=== PATIENT | female | born 1970 | race Caucasian/White ===

== ENCOUNTER 2017-06-09 19:50 | Emergency (ER) | payer BC ==
[~2017-06-09] VITALS: Ht 170.2 cm; Wt 90.3 kg
[~2017-06-09 19:50] MED LIST: ABILIFY5 MG PO; ALTEPLASE IV; AMITRIPTYLINE H25 MG PO; ATARAX 25MG25 MG PO; ATIVAN1 MG; BENTYL10 MG PO; BUMETANIDE1 MG PO; BUSPIRONE HCL5 MG PO; CLONAZEPAM0.5 MG PO; CYCLOBENZAPRINE10 MG PO; CYMBALTA20 MG PO; EFFEXOR XR150 MG PO; LEXAPRO20 MG PO; LIOTHYRONINE SO5 MCG PO; LOPERAMIDE2 MG PO; OXYCODONE-ACET1 EAC1 PO; PANTOPRAZOLE SO40 MG PO; POTASSIUM CHLO20 ME1 PO; PREDNISONE5 MG PO; PROSOURCE275 GM PO; RESTORIL30 MG PO; SEROQUEL25 MG PO; SYNTHROID50 MCG PO; TEMAZEPAM15 MG PO; VANCOMYCIN HCL1 GM IV; XANAX1 MG PO; Z VYVANSE PO; Z.0.DICYCLOMINE HCL2 PO; Z.0.TRAZODONE HCL100 PO; ZOFRAN ODT4 MG IV; [UNRECOGNIZED DRUG - OTHER] PO; [UNRECOGNIZED DRUG - OTHER] PO; rexulti; trintellix
[2017-06-09] MEDS ORDERED: DIATRIZOATE MEGLUMINE 300 MG/1 ML BTL UR ONE (21:34)
[2017-06-09] MEDS ORDERED: DIATRIZOATE MEGL/DIATRIZOA SOD 30 ML BTL PO ONE (21:37)
[2017-06-09 22:33] LABS: BILIRUBIN,URINE NEGATIVE (NEGATIVE); KETONES,URINE NEGATIVE (NEGATIVE); LEUKOCYTE ESTERASE ,URINE NEGATIVE (NEGATIVE); NITRITE,URINE NEGATIVE (NEGATIVE); PROTEIN,URINE DIPSTICK NEGATIVE (NEGATIVE); URINE UROBILINOGEN 0.2 mg/dL (0.2 - 1)
[2017-06-09 22:34] LABS: CLARITY,URINE CLEAR (CLEAR); COLOR,URINE YELLOW (YELLOW)
[2017-06-09 22:58] LABS: EPITHELIAL CELLS,URINE FEW /LPF; RBC,URINE 0-5 /HPF (0-5); WBC,URINE (MAN) 0-5 /HPF (0-5)
--- NOTE | 2017-06-09 23:29 | Diagnostic Imaging Report ---
EXAM: CT Abdomen and Pelvis WITHOUT contrast INDICATION: Abdominal pain, left-sided, history of colonic surgery COMPARISON: 11/25/2011 TECHNIQUE: Abdomen and pelvis were scanned utilizing a multidetector helical scanner from the lung base to the pubic symphysis without administration of IV contrast. Absence of intravenous contrast decreases sensitivity for detection of focal lesions and vascular pathology. Coronal and sagittal reformations were obtained. Routine protocol was performed. IV CONTRAST: None. ORAL CONTRAST: Water RADIATION DOSE: Total DLP: 717.17 mGy*cm Estimated effective dose: (DLP x 0.015 x size factor) mSv COMPLICATIONS: None FINDINGS: LINES and TUBES: None. LOWER THORAX: Unremarkable HEPATOBILIARY: No focal hepatic lesions. No biliary ductal dilation. GALLBLADDER: Not visualized SPLEEN: No splenomegaly. PANCREAS: No focal masses or ductal dilatation. ADRENALS: No adrenal nodules KIDNEYS/URETERS: No hydronephrosis. No cystic or solid mass lesions. No stones. GI TRACT: No abnormal distention, wall thickening, or evidence of bowel obstruction. There is subtotal resection of the colon. The great majority of small bowel and stomach are well opacified. Postsurgical changes in the upper abdomen compatible with prior bariatric surgery. PELVIC ORGANS/BLADDER: There are postop changes of hysterectomy and bilateral oophorectomies. LYMPH NODES: No lymphadenopathy. VESSELS: Unremarkable. PERITONEUM / RETROPERITONEUM: No free air or fluid. BONES: Unremarkable. SOFT TISSUES: Anterior abdominal wall repair with mesh IMPRESSION: 1. No evidence of obstruction. 2. Postsurgical changes related to bariatric surgery and subtotal colectomy. 3. No acute intra-abdominal or pelvic abnormality noted Signed by: Dr. Best Carmona M.D. on 06/09/2017 11:26 PM
[2017-06-09 23:39] LABS: BASOPHILS % 0.8 % (0.0-1.0); EOSINOPHILS # (AUTO) 0.1 (0.0-0.4); EOSINOPHILS % 1.5 % (0.0-6.0); HEMATOCRIT 35.7 % (34.2-44.1); HEMOGLOBIN 11.5 g/dL (12.0-16.0); LYMPHOCYTES # (AUTO) 1.9 (1.0-3.2); LYMPHOCYTES % 34.8 % (18.0-39.1); MEAN CORPUSCULAR HEMOGLOBIN 27.5 pg (28-32); MEAN CORPUSCULAR HGB CONC 32.2 g/dL (31-35); MEAN CORPUSCULAR VOLUME 85.4 fL (81-99); MONOCYTES # (AUTO) 0.4 (0.2-0.8); MONOCYTES % 7.2 % (4.4-11.3); NEUTROPHILS # (AUTO) 2.9 (2.1-6.9); NEUTROPHILS % 55.3 % (38.7-80.0); PLATELET COUNT 293 x10e3/uL (140-360); RED BLOOD COUNT 4.18 x10e6/uL (3.6-5.1); RED CELL DISTRIBUTION WIDTH 14.2 % (11.7-14.4)
[2017-06-09 23:56] LABS: ALANINE AMINOTRANSFERASE 12 IU/L (0-55); ALBUMIN 3.4 g/dL (3.5-5.0); ALKALINE PHOSPHATASE 124 IU/L (40-150); AMYLASE 33 U/L (25-125); ANION GAP 13.8 mmol/L (8-16); BLOOD UREA NITROGEN 10 mg/dL (7-26); BUN/CREATININE RATIO 13 (6-25); CALCIUM 9.5 mg/dL (8.4-10.2); CARBON DIOXIDE 25 mmol/L (22-29); CHLORIDE 103 mmol/L (98-107); EST GLOMERULAR FILTRATION RATE > 60 ML/MIN (60-); GLUCOSE 93 mg/dL (74-118); LIPASE 31 U/L (8-78); POTASSIUM 3.8 mmol/L (3.5-5.1); SODIUM 138 mmol/L (136-145)
== END 2017-06-10 01:08 | disposition home or self-care (01) ==
LOC: ER 19:50
DX: R10.33 Periumbilical pain (principal); I10 Essential (primary) hypertension; G40.909 Epilepsy, unspecified, not intractable, without status epilepticus; Z85.3 Personal history of malignant neoplasm of breast
CPT/HCPCS: 36415; 74176; 80053; 81001; 82150; 83690; 85025; 87086; 99284

== ENCOUNTER 2018-02-18 08:49 | Emergency (ER) | payer BC ==
[~2018-02-18] VITALS: Ht 170.2 cm; Wt 90.3 kg
[2018-02-18] MEDS ORDERED: ASPIRIN 81 MG CHEW TAB PO STA (09:14)
[2018-02-18] MEDS ORDERED: SODIUM CHLORIDE 0.9% 100 ML IV STA (09:14)
[2018-02-18] MEDS ORDERED: ASPIRIN 81 MG CHEW TAB PO ONE (09:15)
[2018-02-18] MEDS ORDERED: SODIUM CHLORIDE 0.9% 1000ML 1,000 ML IV SCH (10:30)
[2018-02-18 10:44] LABS: BASOPHILS # (AUTO) 0.1 (0.0-0.1); BASOPHILS % 0.9 % (0.0-1.0); EOSINOPHILS # (AUTO) 0.1 (0.0-0.4); HEMATOCRIT 31.9 % (34.2-44.1); HEMOGLOBIN 9.6 g/dL (12.0-16.0); LYMPHOCYTES # (AUTO) 1.8 (1.0-3.2); LYMPHOCYTES % 31.7 % (18.0-39.1); MEAN CORPUSCULAR HEMOGLOBIN 24.9 pg (28-32); MEAN CORPUSCULAR HGB CONC 30.1 g/dL (31-35); MEAN CORPUSCULAR VOLUME 82.6 fL (81-99); MONOCYTES # (AUTO) 0.3 (0.2-0.8); MONOCYTES % 5.7 % (4.4-11.3); NEUTROPHILS # (AUTO) 3.4 (2.1-6.9); NEUTROPHILS % 59.3 % (38.7-80.0); PLATELET COUNT 343 x10e3/uL (140-360); RED BLOOD COUNT 3.86 x10e6/uL (3.6-5.1)
[2018-02-18 10:59] LABS: AMPHETAMINES SCREEN,URINE POSITIVE (NEGATIVE); PHENCYCLIDINE SCREEN,URINE NEGATIVE (NEGATIVE)
[2018-02-18 11:00] LABS: BENZODIAZEPINES SCREEN,URINE NEGATIVE (NEGATIVE)
[2018-02-18] MEDS ORDERED: ONDANSETRON HCL 4 MG ORAL DISINTEGRATING TAB PO ONE (11:00)
[2018-02-18 11:03] LABS: ALANINE AMINOTRANSFERASE 15 IU/L (0-55); ALBUMIN 3.5 g/dL (3.5-5.0); ALBUMIN/GLOBULIN RATIO 0.9 (0.8-2.0); ALKALINE PHOSPHATASE 146 IU/L (40-150); AMYLASE 53 U/L (25-125); ANION GAP 16.4 mmol/L (8-16); BLOOD UREA NITROGEN 6 mg/dL (7-26); BUN/CREATININE RATIO 6 (6-25); CALCIUM 9.2 mg/dL (8.4-10.2); CARBON DIOXIDE 22 mmol/L (22-29); CHLORIDE 109 mmol/L (98-107); CREATINE KINASE 68 IU/L (29-168); CREATININE, SERUM 1.01 mg/dL (0.57-1.11); EST GLOMERULAR FILTRATION RATE 59 ML/MIN (60-); GLUCOSE 93 mg/dL (74-118); LIPASE 35 U/L (8-78); POTASSIUM 4.4 mmol/L (3.5-5.1); SODIUM 143 mmol/L (136-145)
[2018-02-18] MEDS ORDERED: ACETAMIN/BUTALBITAL/CAFFEINE TAB PO ONE (11:45)
--- NOTE | 2018-02-18 12:19 | Diagnostic Imaging Report ---
PROCEDURE: A single AP view of the chest. COMPARISON: Chest radiograph 03/12/17. INDICATIONS: CHEST TIGHTNESS FINDINGS: Lines/tubes: Right chest port with tip near the cavoatrial junction. The apex of the catheter is acutely angled at the neck. Interval removal of left sided PICC. Surgical clips project over the left hemithorax. Lungs: The lungs are well inflated and clear. There is no evidence of pneumonia or pulmonary edema. Pleura: There is no pleural effusion or pneumothorax. Heart and mediastinum: The cardiomediastinal silhouette is unchanged. Bones: No acute bony abnormality. IMPRESSION: Clear lungs. No evidence of pneumothorax. Right sided chest port with catheter apex with an acute angle at the neck, which could be positional or represent a kink. Dictated by: RICKEY RHODES M.D. on 02/18/2018 at 9:56 Electronically approved by: RICKEY RHODES M.D. on 02/18/2018 at 9:56
[2018-02-18 13:50] VITALS: BP 134/79
== END 2018-02-18 14:08 | disposition home or self-care (01) ==
LOC: ER 08:49
DX: R07.89 Other chest pain (principal); R11.0 Nausea
CPT/HCPCS: 36415; 71045; 80053; 80307; 82150; 82550; 82553; 83690; 83880; 84484; 85025; 93005; 99284; J1642

== ENCOUNTER 2021-10-12 13:36 | Inpatient (IN) | payer MEDICARE ==
[~2021-10-12] VITALS: Ht 170.2 cm; Wt 100.2 kg
[2021-10-12] MEDS ORDERED: LORAZEPAM 0.5 MG TAB PO ONE (13:45)
[2021-10-12] MEDS ORDERED: ONDANSETRON HCL INJ 2MG/ML 2ML 2 MG/ML VIAL IV STA (14:54)
[2021-10-12 14:55] LABS: BASOPHILS # (AUTO) 0.1 (0.0-0.1); BASOPHILS % 0.7 % (0.0-1.0); EOSINOPHILS # (AUTO) 0.1 (0.0-0.4); EOSINOPHILS % 1.2 % (0.0-6.0); HEMATOCRIT 39.2 % (34.2-44.1); HEMOGLOBIN 12.2 g/dL (12.0-16.0); LYMPHOCYTES # (AUTO) 2.6 (1.0-3.2); LYMPHOCYTES % 38.4 % (18.0-39.1); MEAN CORPUSCULAR HEMOGLOBIN 28.6 pg (28-32); MEAN CORPUSCULAR HGB CONC 31.1 g/dL (31-35); MONOCYTES # (AUTO) 0.5 (0.2-0.8); MONOCYTES % 7.4 % (4.4-11.3); NEUTROPHILS # (AUTO) 3.6 (2.1-6.9); NEUTROPHILS % 51.9 % (38.7-80.0); PLATELET COUNT 244 x10e3/uL (140-360); RED BLOOD COUNT 4.26 x10e6/uL (3.6-5.1); RED CELL DISTRIBUTION WIDTH 13.5 % (11.7-14.4)
[2021-10-12] MEDS ORDERED: SODIUM CHLORIDE 0.9% 1000ML 1,000 ML IV SCH (15:00)
[2021-10-12] MEDS ORDERED: SODIUM CHLORIDE 0.9% 1000ML 1,000 ML ONE (15:02)
[2021-10-12 15:16] LABS: ALBUMIN 3.4 g/dL (3.5-5.0); ALBUMIN/GLOBULIN RATIO 0.9 (0.8-2.0); ANION GAP 13.7 mmol/L (8-16); CREATININE, SERUM 0.93 mg/dL (0.57-1.11); POTASSIUM 3.7 mmol/L (3.5-5.1)
[2021-10-12] MEDS ORDERED: SODIUM CHLORIDE 0.9% 1000ML 500 ML IV ONE (16:15)
[2021-10-12] MEDS ORDERED: DEXTROSE 50% SYRINGE 50 ML IV ONE ×2 (16:15→16:19)
[2021-10-12] MEDS ORDERED: SODIUM CHLORIDE 0.9% 500ML 500 ML ONE (16:20)
[2021-10-12 16:26] LABS: CLARITY,URINE SL CLOUDY (CLEAR); COLOR,URINE STRAW (YELLOW); KETONES,URINE TRACE (NEGATIVE); LEUKOCYTE ESTERASE ,URINE MODERATE (NEGATIVE); NITRITE,URINE NEGATIVE (NEGATIVE); PROTEIN,URINE DIPSTICK TRACE (NEGATIVE); URINE UROBILINOGEN 0.2 mg/dL (0.2 - 1)
[2021-10-12 16:34] LABS: BACTERIA,URINE MODERATE /HPF; EPITHELIAL CELLS,URINE FEW /LPF; RBC,URINE 0-5 /HPF (0-5)
[2021-10-12] MEDS ORDERED: ONDANSETRON HCL INJ 2MG/ML 2ML 2 MG/ML VIAL IV PRN (16:45)
[2021-10-12] MEDS: CEPHALEXIN 500 MG CAP PO SCH ×2 (17:35→23:38)
[2021-10-12] MEDS: CLONAZEPAM 0.5 MG TAB PO PRN (17:35)
[2021-10-12] MEDS: SODIUM CHLORIDE 0.9% 1000ML 1,000 ML IV SCH (18:08)
[2021-10-12 20:00] VITALS: BP 115/73
[2021-10-12 20:07] VITALS: BP 115/73
[2021-10-12] MEDS ORDERED: TRAZODONE HCL300 MG PO (22:22)
[2021-10-12] MEDS ORDERED: GEODON80 MG PO (22:23)
[2021-10-12] MEDS ORDERED: GABAPENTIN400 MG PO (22:25)
[2021-10-12] MEDS ORDERED: WARFARIN SODIUM5 MG PO (22:28)
[2021-10-12] MEDS: DULOXETINE HCL 30 MG DELAYED RELEASE PO SCH (23:16)
[2021-10-12] MEDS: ZIPRASIDONE 20 MG CAP PO SCH (23:17)
[2021-10-12] MEDS: TRAZODONE HCL 50 MG TAB PO SCH (23:17)
[2021-10-12] MEDS: GABAPENTIN 300 MG CAP PO SCH (23:17)
[2021-10-12] MEDS: CLONAZEPAM 1 MG TAB PO PRN (23:38)
[2021-10-13] VITALS (7 sets, daily range): BP systolic 118–140; BP diastolic 71–79
[2021-10-13] MEDS: SODIUM CHLORIDE 0.9% 1000ML 1,000 ML IV SCH (05:04)
[2021-10-13] MEDS: CEPHALEXIN 500 MG CAP PO SCH (05:11)
[2021-10-13 05:30] LABS: BASOPHILS % 0.7 % (0.0-1.0); EOSINOPHILS # (AUTO) 0.1 (0.0-0.4); HEMATOCRIT 36.2 % (34.2-44.1); LYMPHOCYTES # (AUTO) 1.3 (1.0-3.2); LYMPHOCYTES % 29.7 % (18.0-39.1); MEAN CORPUSCULAR HEMOGLOBIN 28.5 pg (28-32); MEAN CORPUSCULAR HGB CONC 30.4 g/dL (31-35); MEAN CORPUSCULAR VOLUME 93.8 fL (81-99); MONOCYTES # (AUTO) 0.3 (0.2-0.8); MONOCYTES % 7.1 % (4.4-11.3); NEUTROPHILS # (AUTO) 2.7 (2.1-6.9); NEUTROPHILS % 60.3 % (38.7-80.0); PLATELET COUNT 213 x10e3/uL (140-360); RED BLOOD COUNT 3.86 x10e6/uL (3.6-5.1); RED CELL DISTRIBUTION WIDTH 13.2 % (11.7-14.4)
[2021-10-13 06:12] LABS: ANION GAP 9.8 mmol/L (8-16); CALCIUM 8.1 mg/dL (8.4-10.2); CREATININE, SERUM 0.75 mg/dL (0.57-1.11); POTASSIUM 3.8 mmol/L (3.5-5.1)
[2021-10-13] MEDS ORDERED: ONDANSETRON HCL 4 MG ORAL DISINTEGRATING TAB PO SCH (07:45)
[2021-10-13] MEDS ORDERED: DEXTROSE 5%/0.45% SOD CHL 1,000 ML IV SCH (07:45)
[2021-10-13] MEDS: LEVOTHYROXINE SODIUM 50 MCG TAB PO SCH (09:00)
[2021-10-13] MEDS ORDERED: DULOXETINE HCL 30 MG DELAYED RELEASE PO SCH (09:00)
[2021-10-13] MEDS: DULOXETINE HCL 30 MG DELAYED RELEASE PO SCH ×2 (09:31→16:19)
[2021-10-13] MEDS: PREDNISONE 10 MG TAB PO SCH (09:31)
[2021-10-13] MEDS: TRIMETHOPRIM/SULFAMETHOXAZOLE 160-800 MG TAB PO SCH ×2 (09:31→22:04)
[2021-10-13 09:48] LABS: INR 1.38; PROTHROMBIN TIME 18.1 seconds (11.9-14.5)
[2021-10-13] MEDS ORDERED: ONDANSETRON HCL 4 MG ORAL DISINTEGRATING TAB PO PRN (10:15)
[2021-10-13] MEDS: CLONAZEPAM 0.5 MG TAB PO PRN (12:40)
[2021-10-13] MEDS: WARFARIN SOD 5 MG TAB PO SCH (16:18)
[2021-10-13] MEDS: CLONAZEPAM 1 MG TAB PO PRN (20:04)
[2021-10-13] MEDS ORDERED: ZIPRASIDONE 20 MG CAP PO SCH (21:00)
[2021-10-13] MEDS ORDERED: GABAPENTIN 300 MG CAP PO SCH (21:00)
[2021-10-13] MEDS ORDERED: TRAZODONE HCL 50 MG TAB PO SCH (21:00)
[2021-10-13] MEDS: GABAPENTIN 300 MG CAP PO SCH (22:04)
[2021-10-13] MEDS: ZIPRASIDONE 20 MG CAP PO SCH (22:04)
[2021-10-13] MEDS: TRAZODONE HCL 50 MG TAB PO SCH (22:04)
[2021-10-14] VITALS: BP 117/58
[2021-10-14] MEDS: LEVOTHYROXINE SODIUM 50 MCG TAB PO SCH (05:44)
[2021-10-14 05:47] VITALS: BP 126/76
[2021-10-14 07:57] VITALS: BP 121/72
[2021-10-14 08:03] VITALS: BP 121/72
[2021-10-14] MEDS: TRIMETHOPRIM/SULFAMETHOXAZOLE 160-800 MG TAB PO SCH ×2 (08:38→22:30)
[2021-10-14] MEDS: PREDNISONE 10 MG TAB PO SCH (08:38)
[2021-10-14] MEDS: DULOXETINE HCL 30 MG DELAYED RELEASE PO SCH ×2 (08:38→17:11)
[2021-10-14] MEDS ORDERED: BACTRIM DS TAB1 EACH PO (10:07)
[2021-10-14] MEDS: CLONAZEPAM 0.5 MG TAB PO PRN (14:00)
[2021-10-14 15:26] VITALS: BP 136/76
[2021-10-14] MEDS: WARFARIN SOD 5 MG TAB PO SCH (17:11)
[2021-10-14 18:16] LABS: FREE T4 (FREE THYROXINE) 0.95 ng/dL (0.8-1.8); THYROID STIMULATING HORMONE 2.148 uIU/mL (0.350-4.940)
[2021-10-14 20:00] VITALS: BP 139/82
[2021-10-14] MEDS: GABAPENTIN 300 MG CAP PO SCH (22:30)
[2021-10-14] MEDS: ZIPRASIDONE 20 MG CAP PO SCH (22:30)
[2021-10-14] MEDS: TRAZODONE HCL 50 MG TAB PO SCH (22:30)
[2021-10-14] MEDS: CLONAZEPAM 1 MG TAB PO PRN (22:30)
[2021-10-15 01:23] VITALS: BP 135/88
[2021-10-15 04:00] VITALS: BP 104/68
[2021-10-15] MEDS: LEVOTHYROXINE SODIUM 50 MCG TAB PO SCH (05:25)
[2021-10-15 07:58] VITALS: BP 111/65
[2021-10-15 08:00] VITALS: BP 111/65
[2021-10-15] MEDS: DULOXETINE HCL 30 MG DELAYED RELEASE PO SCH (08:33)
[2021-10-15] MEDS: PREDNISONE 10 MG TAB PO SCH (08:33)
[2021-10-15] MEDS: TRIMETHOPRIM/SULFAMETHOXAZOLE 160-800 MG TAB PO SCH (08:33)
[2021-10-15 09:08] LABS: BASOPHILS % 0.6 % (0.0-1.0); EOSINOPHILS # (AUTO) 0.1 (0.0-0.4); EOSINOPHILS % 1.8 % (0.0-6.0); HEMATOCRIT 34.8 % (34.2-44.1); HEMOGLOBIN 10.8 g/dL (12.0-16.0); LYMPHOCYTES # (AUTO) 1.7 (1.0-3.2); LYMPHOCYTES % 33.5 % (18.0-39.1); MEAN CORPUSCULAR HEMOGLOBIN 28.6 pg (28-32); MEAN CORPUSCULAR VOLUME 92.1 fL (81-99); MONOCYTES # (AUTO) 0.3 (0.2-0.8); MONOCYTES % 6.1 % (4.4-11.3); NEUTROPHILS % 57.6 % (38.7-80.0); PLATELET COUNT 214 x10e3/uL (140-360); RED BLOOD COUNT 3.78 x10e6/uL (3.6-5.1); RED CELL DISTRIBUTION WIDTH 13.3 % (11.7-14.4)
[2021-10-15 09:26] LABS: ALBUMIN 2.8 g/dL (3.5-5.0); ALBUMIN/GLOBULIN RATIO 0.9 (0.8-2.0); ANION GAP 14.5 mmol/L (8-16); CREATININE, SERUM 0.91 mg/dL (0.57-1.11); MAGNESIUM 1.7 MG/DL (1.3-2.1); POTASSIUM 3.5 mmol/L (3.5-5.1)
[2021-10-15] MEDS ORDERED: SYNTHROID50 MCG PO (09:32)
[2021-10-15] MEDS ORDERED: PREDNISONE5 MG PO (09:32)
[2021-10-15] MEDS ORDERED: HEPARIN 500 UNITS/5ML MDV INJ ONE (09:45)
== END 2021-10-15 10:25 | disposition home or self-care (01) | DRG 392 ==
LOC: ER 13:43 → ERHOLD 16:45 → MED/SURG 18:17 → OBSVTOIN 10-15 07:21
PROVIDERS: ADMIT Internal Medicine; ATTEND Internal Medicine
DX: K91.1 Postgastric surgery syndromes (principal); N39.0 Urinary tract infection, site not specified; E27.1 Primary adrenocortical insufficiency; K95.89 Other complications of other bariatric procedure; E03.9 Hypothyroidism, unspecified; F41.9 Anxiety disorder, unspecified; E16.2 Hypoglycemia, unspecified; Z91.040 Latex allergy status; Z88.0 Allergy status to penicillin; Z88.2 Allergy status to sulfonamides; Z88.8 Allergy status to other drugs, medicaments and biological substances; Z91.048 Other nonmedicinal substance allergy status; F32.A Depression, unspecified; Z85.3 Personal history of malignant neoplasm of breast; Z90.13 Acquired absence of bilateral breasts and nipples; Z90.49 Acquired absence of other specified parts of digestive tract; Z86.711 Personal history of pulmonary embolism; Z79.01 Long term (current) use of anticoagulants; Z93.3 Colostomy status
CPT/HCPCS: 36415; 80048; 80053; 81001; 82024; 83036; 83525; 83735; 84206; 84439; 84443; 84681; 85025; 85610; 87086; 99284; G0378; J2405; J7030; J7040; J7512; J7799; Q0162; U0002

== ENCOUNTER 2021-11-14 16:51 | Observation (INO) | payer MEDICARE ==
[~2021-11-14] VITALS: Ht 170.2 cm; Wt 100.7 kg
[~2021-11-14 16:51] MED LIST changes: +BACTRIM DS TAB1 EACH PO; +GABAPENTIN400 MG PO; +GEODON80 MG PO; +TRAZODONE HCL300 MG PO; +WARFARIN SODIUM5 MG PO; -ZOFRAN ODT4 MG IV; +ZOFRAN ODT4 MG PO
[2021-11-14] MEDS ORDERED: SODIUM CHLORIDE 0.9% 1000ML 1,000 ML IV STA (17:50)
[2021-11-14] MEDS ORDERED: MECLIZINE HCL 12.5 MG TAB PO STA (17:50)
[2021-11-14 18:12] LABS: BASOPHILS % 0.7 % (0.0-1.0); EOSINOPHILS # (AUTO) 0.1 (0.0-0.4); EOSINOPHILS % 1.1 % (0.0-6.0); HEMOGLOBIN 10.9 g/dL (12.0-16.0); LYMPHOCYTES # (AUTO) 1.6 (1.0-3.2); LYMPHOCYTES % 28.3 % (18.0-39.1); MEAN CORPUSCULAR HEMOGLOBIN 29.2 pg (28-32); MEAN CORPUSCULAR HGB CONC 31.1 g/dL (31-35); MEAN CORPUSCULAR VOLUME 93.8 fL (81-99); MONOCYTES # (AUTO) 0.3 (0.2-0.8); MONOCYTES % 5.2 % (4.4-11.3); NEUTROPHILS # (AUTO) 3.6 (2.1-6.9); NEUTROPHILS % 64.5 % (38.7-80.0); PLATELET COUNT 223 x10e3/uL (140-360); RED BLOOD COUNT 3.73 x10e6/uL (3.6-5.1); RED CELL DISTRIBUTION WIDTH 14.1 % (11.7-14.4)
[2021-11-14 18:34] LABS: ALBUMIN 3.2 g/dL (3.5-5.0); ALBUMIN/GLOBULIN RATIO 0.8 (0.8-2.0); ANION GAP 15.6 mmol/L (8-16); CALCIUM 8.2 mg/dL (8.4-10.2); CREATININE, SERUM 0.78 mg/dL (0.57-1.11); POTASSIUM 4.6 mmol/L (3.5-5.1)
[2021-11-14] MEDS ORDERED: IOPAMIDOL 370 MG/ML 100 ML INFUS..BTL INJ ONE (18:58)
[2021-11-14 19:53] LABS: CLARITY,URINE CLOUDY (CLEAR); COLOR,URINE YELLOW (YELLOW); KETONES,URINE NEGATIVE (NEGATIVE); LEUKOCYTE ESTERASE ,URINE 1+ (NEGATIVE); NITRITE,URINE NEGATIVE (NEGATIVE); PROTEIN,URINE DIPSTICK NEGATIVE (NEGATIVE)
[2021-11-14 19:54] LABS: URINE UROBILINOGEN 4 mg/dL (0.2 - 1)
[2021-11-14 19:55] LABS: AMPHETAMINES SCREEN,URINE NEGATIVE (NEGATIVE); BENZODIAZEPINES SCREEN,URINE NEGATIVE (NEGATIVE); PHENCYCLIDINE SCREEN,URINE NEGATIVE (NEGATIVE)
[2021-11-14 20:04] LABS: BACTERIA,URINE MODERATE /HPF; EPITHELIAL CELLS,URINE MANY /LPF; TRANSITIONAL EPI CELLS,URINE FEW
[2021-11-15] MEDS ORDERED: AMITRIPTYLINE100 MG PO (03:12)
[2021-11-15] MEDS: SODIUM CHLORIDE 0.9% 1000ML 1,000 ML IV SCH ×2 (03:46→04:07)
[2021-11-15 03:48] VITALS: BP 123/74
[2021-11-15 03:56] VITALS: BP 123/74
[2021-11-15 04:01] VITALS: BP 123/74
[2021-11-15] MEDS ORDERED: ACETAMINOPHEN 325 MG TAB PO PRN (07:15)
[2021-11-15 07:59] LABS: BASOPHILS % 0.9 % (0.0-1.0); EOSINOPHILS % 1.2 % (0.0-6.0); HEMATOCRIT 33.8 % (34.2-44.1); HEMOGLOBIN 10.3 g/dL (12.0-16.0); LYMPHOCYTES # (AUTO) 0.9 (1.0-3.2); LYMPHOCYTES % 29.2 % (18.0-39.1); MEAN CORPUSCULAR HEMOGLOBIN 28.7 pg (28-32); MEAN CORPUSCULAR HGB CONC 30.5 g/dL (31-35); MEAN CORPUSCULAR VOLUME 94.2 fL (81-99); MONOCYTES # (AUTO) 0.2 (0.2-0.8); MONOCYTES % 6.8 % (4.4-11.3); NEUTROPHILS % 61.6 % (38.7-80.0); RED BLOOD COUNT 3.59 x10e6/uL (3.6-5.1); RED CELL DISTRIBUTION WIDTH 13.9 % (11.7-14.4)
[2021-11-15 08:08] LABS: PLATELET COUNT 168 x10e3/uL (140-360)
[2021-11-15 08:13] VITALS: BP 132/87
[2021-11-15] MEDS ORDERED: ONDANSETRON HCL 4 MG ORAL DISINTEGRATING TAB PO PRN (08:15)
[2021-11-15] MEDS ORDERED: CLONAZEPAM 1 MG TAB PO PRN (08:15)
[2021-11-15] MEDS ORDERED: MECLIZINE HCL 12.5 MG TAB PO PRN ×2 (08:15→08:45)
[2021-11-15] MEDS ORDERED: LEVOTHYROXINE SODIUM 50 MCG TAB PO SCH (08:30)
[2021-11-15 08:32] LABS: ALBUMIN 2.8 g/dL (3.5-5.0); ALBUMIN/GLOBULIN RATIO 0.9 (0.8-2.0); CALCIUM 7.8 mg/dL (8.4-10.2); CREATININE, SERUM 0.71 mg/dL (0.57-1.11)
[2021-11-15 08:54] LABS: CREATINE KINASE MB 0.6 ng/mL (0-5.0)
[2021-11-15] MEDS ORDERED: DULOXETINE HCL 30 MG DELAYED RELEASE PO SCH (09:00)
[2021-11-15] MEDS ORDERED: PREDNISONE 10 MG TAB PO SCH (09:00)
[2021-11-15 10:05] LABS: INR 1.02; PROTHROMBIN TIME 14.3 seconds (11.9-14.5)
[2021-11-15 10:06] VITALS: BP 132/87
[2021-11-15 11:04] VITALS: BP 144/74
[2021-11-15] MEDS ORDERED: MECLIZINE HCL12.5 MG PO (14:47)
[2021-11-15] MEDS ORDERED: WARFARIN SOD 5 MG TAB PO SCH (17:00)
[2021-11-15] MEDS ORDERED: GABAPENTIN 300 MG CAP PO SCH (21:00)
[2021-11-15] MEDS ORDERED: ZIPRASIDONE 20 MG CAP PO SCH (21:00)
[2021-11-15] MEDS ORDERED: TRAZODONE HCL 50 MG TAB PO SCH (21:00)
== END 2021-11-15 14:45 | disposition home or self-care (01) ==
LOC: ER 17:46 → ERHOLD 20:16 → MED/SURG 11-15 02:17
PROVIDERS: ADMIT Internal Medicine; ATTEND Internal Medicine
DX: R42 Dizziness and giddiness (principal); R55 Syncope and collapse; F12.90 Cannabis use, unspecified, uncomplicated; D64.9 Anemia, unspecified; E03.9 Hypothyroidism, unspecified; F41.9 Anxiety disorder, unspecified; F32.A Depression, unspecified; E66.9 Obesity, unspecified; E27.1 Primary adrenocortical insufficiency; Z85.3 Personal history of malignant neoplasm of breast; Z98.84 Bariatric surgery status; Z91.040 Latex allergy status; Z88.0 Allergy status to penicillin; Z88.8 Allergy status to other drugs, medicaments and biological substances; Z91.048 Other nonmedicinal substance allergy status; Z20.822 Contact with and (suspected) exposure to COVID-19; Z86.711 Personal history of pulmonary embolism; Z68.34 Body mass index [BMI] 34.0-34.9, adult; Z91.14 Patient's other noncompliance with medication regimen
CPT/HCPCS: 36415 ×2; 70450; 70496; 70498; 71045; 80053 ×2; 80307; 80320; 81001; 82550; 82553; 84484 ×2; 85025 ×2; 85610; 93005; 93306; 99284; G0378 ×2; J7030 ×2; J7512; J8597 ×2; Q0162; Q9967; U0002

== ENCOUNTER 2022-03-29 19:24 | Inpatient (IN) | payer MEDICARE ==
[~2022-03-29] VITALS: Ht 170.2 cm; Wt 99.8 kg
[~2022-03-29 19:24] MED LIST changes: +AMITRIPTYLINE100 MG PO; +MECLIZINE HCL12.5 MG PO
[2022-03-29] MEDS ORDERED: ONDANSETRON HCL INJ 2MG/ML 2ML 2 MG/ML VIAL IV STA (19:38)
[2022-03-29] MEDS ORDERED: SODIUM CHLORIDE 0.9% 1000ML 1,000 ML IV ONE (19:45)
[2022-03-29] MEDS ORDERED: Morphine 4mg INJECTION 4 MG/ML INJ IV ONE ×2 (19:45→22:15)
[2022-03-29 20:17] LABS: BASOPHILS % 0.6 % (0.0-1.0); EOSINOPHILS # (AUTO) 0.1 (0.0-0.4); HEMATOCRIT 35.3 % (34.2-44.1); HEMOGLOBIN 10.9 g/dL (12.0-16.0); LYMPHOCYTES # (AUTO) 1.6 (1.0-3.2); LYMPHOCYTES % 32.9 % (18.0-39.1); MEAN CORPUSCULAR HEMOGLOBIN 28.6 pg (28-32); MEAN CORPUSCULAR HGB CONC 30.9 g/dL (31-35); MEAN CORPUSCULAR VOLUME 92.7 fL (81-99); MONOCYTES # (AUTO) 0.3 (0.2-0.8); MONOCYTES % 6.3 % (4.4-11.3); NEUTROPHILS # (AUTO) 2.8 (2.1-6.9); PLATELET COUNT 252 x10e3/uL (140-360); RED BLOOD COUNT 3.81 x10e6/uL (3.6-5.1); RED CELL DISTRIBUTION WIDTH 12.7 % (11.7-14.4)
[2022-03-29 20:29] LABS: INR 0.95; PARTIAL THROMBOPLASTIN TIME 27.7 seconds (23.8-35.5); PROTHROMBIN TIME 13.5 seconds (11.9-14.5)
[2022-03-29 20:36] LABS: ALBUMIN 3.4 g/dL (3.5-5.0); ANION GAP 15.8 mmol/L (8-16); CALCIUM 8.8 mg/dL (8.4-10.2); CREATININE, SERUM 0.82 mg/dL (0.57-1.11); POTASSIUM 3.8 mmol/L (3.5-5.1)
[2022-03-29 20:43] LABS: CREATINE KINASE MB 0.7 ng/mL (0-5.0)
[2022-03-29] MEDS ORDERED: ONDANSETRON HCL INJ 2MG/ML 2ML 2 MG/ML VIAL IV PRN (22:45)
[2022-03-29] MEDS: SODIUM CHLORIDE 0.9% 1000ML 1,000 ML IV SCH (23:26)
[2022-03-30] VITALS (10 sets, daily range): BP systolic 92–165; BP diastolic 53–90
[2022-03-30] MEDS: KETOROLAC TROMETHAMINE 30 MG/ML VIAL IM PRN ×3 (02:09→16:45)
[2022-03-30] MEDS: SODIUM CHLORIDE 0.9% 1000ML 1,000 ML IV SCH ×4 (07:09→20:14)
[2022-03-30] MEDS ORDERED: CLONAZEPAM 0.5 MG TAB PO PRN (07:30)
[2022-03-30] MEDS ORDERED: MECLIZINE HCL 12.5 MG TAB PO PRN (07:30)
[2022-03-30] MEDS ORDERED: DULOXETINE HCL 20 MG DELAYED RELEASE PO SCH (09:00)
[2022-03-30] MEDS: LEVOTHYROXINE SODIUM 50 MCG TAB PO SCH (09:14)
[2022-03-30] MEDS: PREDNISONE 5 MG TAB PO SCH (09:14)
[2022-03-30] MEDS: DULOXETINE HCL 30 MG DELAYED RELEASE PO SCH ×2 (09:35→16:42)
[2022-03-30] MEDS ORDERED: ONDANSETRON HCL 4 MG ORAL DISINTEGRATING TAB PO PRN (11:30)
[2022-03-30] MEDS: AMITRIPTYLINE HCL 25 MG TAB PO SCH (20:13)
[2022-03-30] MEDS: TRAZODONE HCL 50 MG TAB PO SCH (20:13)
[2022-03-30] MEDS: GABAPENTIN 300 MG CAP PO SCH (20:14)
[2022-03-31] VITALS (9 sets, daily range): BP systolic 129–140; BP diastolic 69–82
[2022-03-31 02:17] LABS: % IRON SATURATION 13 % (15-50); IRON 44 ug/dL (50-170); TOTAL IRON BINDING CAPACITY 347 ug/dL (261-478); TRANSFERRIN 248 mg/dL (180-382)
[2022-03-31] MEDS: KETOROLAC TROMETHAMINE 30 MG/ML VIAL IM PRN ×3 (02:28→13:57)
[2022-03-31] MEDS ORDERED: RIFAXIMIN 550 MG TABLET PO ONE (02:30)
[2022-03-31] MEDS: RIFAXIMIN 550 MG TABLET PO SCH ×3 (06:18→21:54)
[2022-03-31 07:06] LABS: ALBUMIN 2.9 g/dL (3.5-5.0); ANION GAP 12.6 mmol/L (8-16); CALCIUM 8.4 mg/dL (8.4-10.2); CREATININE, SERUM 0.8 mg/dL (0.57-1.11); MAGNESIUM 1.8 MG/DL (1.3-2.1); POTASSIUM 4.6 mmol/L (3.5-5.1)
[2022-03-31] MEDS: LEVOTHYROXINE SODIUM 50 MCG TAB PO SCH (08:31)
[2022-03-31] MEDS: DULOXETINE HCL 30 MG DELAYED RELEASE PO SCH ×2 (08:31→17:30)
[2022-03-31] MEDS: PREDNISONE 5 MG TAB PO SCH (08:31)
[2022-03-31] MEDS: LUBIPROSTONE 24 MCG CAP PO SCH ×2 (08:31→17:30)
[2022-03-31 09:21] LABS: BASOPHILS % 0.4 % (0.0-1.0); EOSINOPHILS # (AUTO) 0.1 (0.0-0.4); HEMATOCRIT 33.5 % (34.2-44.1); HEMOGLOBIN 9.6 g/dL (12.0-16.0); LYMPHOCYTES # (AUTO) 0.8 (1.0-3.2); LYMPHOCYTES % 33.3 % (18.0-39.1); MEAN CORPUSCULAR HGB CONC 28.7 g/dL (31-35); MEAN CORPUSCULAR VOLUME 101.2 fL (81-99); MONOCYTES # (AUTO) 0.2 (0.2-0.8); MONOCYTES % 7.8 % (4.4-11.3); NEUTROPHILS # (AUTO) 1.3 (2.1-6.9); NEUTROPHILS % 55.1 % (38.7-80.0); PLATELET COUNT 174 x10e3/uL (140-360); RED BLOOD COUNT 3.31 x10e6/uL (3.6-5.1); RED CELL DISTRIBUTION WIDTH 12.7 % (11.7-14.4)
[2022-03-31] MEDS: SODIUM CHLORIDE 0.9% 1000ML 1,000 ML IV SCH ×3 (13:56→23:37)
[2022-03-31] MEDS: FOLIC ACID 1 MG TAB PO SCH (15:20)
[2022-03-31] MEDS: CHOLECALCIFEROL 1,000 UNIT TAB PO SCH (15:20)
[2022-03-31] MEDS: HYDROMORPHONE 1MG/1ML INJ IV PRN ×2 (15:21→22:45)
[2022-03-31] MEDS: CYANOCOBALAMIN INJ 1,000 MCG/ML VIAL IM SCH (15:21)
[2022-03-31] MEDS: METRONIDAZOLE 500MG/NS 100ML 100 ML IV SCH (20:16)
[2022-03-31] MEDS: AMITRIPTYLINE HCL 25 MG TAB PO SCH (21:54)
[2022-03-31] MEDS: GABAPENTIN 300 MG CAP PO SCH (21:54)
[2022-03-31] MEDS: TRAZODONE HCL 50 MG TAB PO SCH (21:54)
[2022-04-01] VITALS (8 sets, daily range): BP systolic 138–162; BP diastolic 74–94
[2022-04-01] MEDS: RIFAXIMIN 550 MG TABLET PO SCH ×3 (05:35→21:02)
[2022-04-01] MEDS: METRONIDAZOLE 500MG/NS 100ML 100 ML IV SCH ×3 (05:35→21:32)
[2022-04-01] MEDS: HYDROMORPHONE 1MG/1ML INJ IV PRN ×4 (05:36→21:04)
[2022-04-01 06:18] LABS: BASOPHILS % 0.7 % (0.0-1.0); EOSINOPHILS # (AUTO) 0.1 (0.0-0.4); EOSINOPHILS % 2.1 % (0.0-6.0); HEMATOCRIT 26.7 % (34.2-44.1); HEMOGLOBIN 8.6 g/dL (12.0-16.0); LYMPHOCYTES # (AUTO) 0.9 (1.0-3.2); LYMPHOCYTES % 31.7 % (18.0-39.1); MEAN CORPUSCULAR HEMOGLOBIN 29.3 pg (28-32); MEAN CORPUSCULAR HGB CONC 32.2 g/dL (31-35); MEAN CORPUSCULAR VOLUME 90.8 fL (81-99); MONOCYTES # (AUTO) 0.2 (0.2-0.8); NEUTROPHILS # (AUTO) 1.7 (2.1-6.9); NEUTROPHILS % 58.1 % (38.7-80.0); PLATELET COUNT 173 x10e3/uL (140-360); RED BLOOD COUNT 2.94 x10e6/uL (3.6-5.1); RED CELL DISTRIBUTION WIDTH 12.9 % (11.7-14.4)
[2022-04-01 06:49] LABS: ALANINE AMINOTRANSFERASE 34 IU/L (0-55); ALBUMIN 2.6 g/dL (3.5-5.0); ALBUMIN/GLOBULIN RATIO 1.1 (0.8-2.0); ALKALINE PHOSPHATASE 89 IU/L (40-150); ANION GAP 10.7 mmol/L (8-16); BLOOD UREA NITROGEN < 5 mg/dL (7-26); CARBON DIOXIDE 26 mmol/L (22-29); CHLORIDE 111 mmol/L (98-107); CREATININE, SERUM 0.72 mg/dL (0.57-1.11); GLUCOSE 81 mg/dL (74-118); POTASSIUM 3.7 mmol/L (3.5-5.1); SODIUM 144 mmol/L (136-145)
[2022-04-01 07:03] LABS: BUN/CREATININE RATIO 7 (6-25)
[2022-04-01 07:30] LABS: CLARITY,URINE CLEAR (CLEAR); COLOR,URINE YELLOW (YELLOW); KETONES,URINE NEGATIVE (NEGATIVE); LEUKOCYTE ESTERASE ,URINE MODERATE (NEGATIVE); NITRITE,URINE NEGATIVE (NEGATIVE); PROTEIN,URINE DIPSTICK NEGATIVE (NEGATIVE); URINE UROBILINOGEN 0.2 mg/dL (0.2 - 1); WBC,URINE (MAN) >50 /HPF (0-5)
[2022-04-01] MEDS ORDERED: PANTOPRAZOLE SOD 40 MG TABEC PO SCH (07:30)
[2022-04-01 07:31] LABS: BACTERIA,URINE FEW /HPF; EPITHELIAL CELLS,URINE MANY /LPF; RBC,URINE 0-5 /HPF (0-5)
[2022-04-01] MEDS: LUBIPROSTONE 24 MCG CAP PO SCH ×2 (08:37→17:06)
[2022-04-01] MEDS: CHOLECALCIFEROL 1,000 UNIT TAB PO SCH (08:37)
[2022-04-01] MEDS: DULOXETINE HCL 30 MG DELAYED RELEASE PO SCH ×2 (08:37→17:06)
[2022-04-01] MEDS: PREDNISONE 5 MG TAB PO SCH (08:38)
[2022-04-01] MEDS: CYANOCOBALAMIN INJ 1,000 MCG/ML VIAL IM SCH (08:38)
[2022-04-01] MEDS: LEVOTHYROXINE SODIUM 50 MCG TAB PO SCH (08:38)
[2022-04-01] MEDS: FOLIC ACID 1 MG TAB PO SCH (08:38)
[2022-04-01] MEDS: SODIUM CHLORIDE 0.9% 1000ML 1,000 ML IV SCH (08:50)
[2022-04-01] MEDS ORDERED: FERROUS SULFATE 325 MG TAB PO SCH (09:00)
[2022-04-01] MEDS ORDERED: METOCLOPRAMIDE HCL 10 MG/2ML VIAL IV ONE (21:00)
[2022-04-01] MEDS: TRAZODONE HCL 50 MG TAB PO SCH (21:02)
[2022-04-01] MEDS: GABAPENTIN 300 MG CAP PO SCH (21:02)
[2022-04-01] MEDS: AMITRIPTYLINE HCL 25 MG TAB PO SCH (21:02)
[2022-04-01] MEDS ORDERED: BISACODYL 5 MG TAB EC PO ONE ×2 (21:15→21:30)
[2022-04-01] MEDS: METOCLOPRAMIDE HCL 10 MG/2ML VIAL IV SCH (23:22)
[2022-04-02] VITALS (7 sets, daily range): BP systolic 123–150; BP diastolic 54–81
[2022-04-02] MEDS: SODIUM CHLORIDE 0.9% 1000ML 1,000 ML IV SCH ×2 (02:38→22:14)
[2022-04-02] MEDS: HYDROMORPHONE 1MG/1ML INJ IV PRN ×4 (03:13→22:09)
[2022-04-02] MEDS: METRONIDAZOLE 500MG/NS 100ML 100 ML IV SCH ×3 (05:44→22:09)
[2022-04-02] MEDS: RIFAXIMIN 550 MG TABLET PO SCH ×3 (05:45→21:52)
[2022-04-02] MEDS: METOCLOPRAMIDE HCL 10 MG/2ML VIAL IV SCH ×3 (05:45→17:07)
[2022-04-02 06:29] LABS: BASOPHILS % 0.5 % (0.0-1.0); EOSINOPHILS # (AUTO) 0.1 (0.0-0.4); EOSINOPHILS % 1.4 % (0.0-6.0); HEMATOCRIT 30.5 % (34.2-44.1); HEMOGLOBIN 9.3 g/dL (12.0-16.0); LYMPHOCYTES # (AUTO) 1.3 (1.0-3.2); LYMPHOCYTES % 34.7 % (18.0-39.1); MEAN CORPUSCULAR HEMOGLOBIN 28.5 pg (28-32); MEAN CORPUSCULAR HGB CONC 30.5 g/dL (31-35); MEAN CORPUSCULAR VOLUME 93.6 fL (81-99); MONOCYTES # (AUTO) 0.2 (0.2-0.8); MONOCYTES % 5.5 % (4.4-11.3); NEUTROPHILS # (AUTO) 2.1 (2.1-6.9); NEUTROPHILS % 57.6 % (38.7-80.0); PLATELET COUNT 204 x10e3/uL (140-360); RED BLOOD COUNT 3.26 x10e6/uL (3.6-5.1); RED CELL DISTRIBUTION WIDTH 12.6 % (11.7-14.4)
[2022-04-02 07:02] LABS: ALBUMIN 2.9 g/dL (3.5-5.0); ANION GAP 12.4 mmol/L (8-16); CALCIUM 8.4 mg/dL (8.4-10.2); CREATININE, SERUM 0.76 mg/dL (0.57-1.11); POTASSIUM 3.4 mmol/L (3.5-5.1)
[2022-04-02] MEDS ORDERED: POTASSIUM CHLORIDE 20 MEQ TAB CR PO STA (08:14)
[2022-04-02] MEDS ORDERED: POTASSIUM CHLORIDE 10MEQ EA PO ONE (08:45)
[2022-04-02] MEDS: PREDNISONE 5 MG TAB PO SCH (09:22)
[2022-04-02] MEDS: CYANOCOBALAMIN INJ 1,000 MCG/ML VIAL IM SCH (09:22)
[2022-04-02] MEDS: CHOLECALCIFEROL 1,000 UNIT TAB PO SCH (09:22)
[2022-04-02] MEDS: LUBIPROSTONE 24 MCG CAP PO SCH ×2 (09:22→17:07)
[2022-04-02] MEDS: FOLIC ACID 1 MG TAB PO SCH (09:23)
[2022-04-02] MEDS: DULOXETINE HCL 30 MG DELAYED RELEASE PO SCH ×2 (09:23→17:07)
[2022-04-02] MEDS: LEVOTHYROXINE SODIUM 50 MCG TAB PO SCH (09:23)
[2022-04-02] MEDS: IRON SUCROSE 100 MG in SODIUM CHLORIDE 0.9% 100 ML IV SCH (13:30)
[2022-04-02] MEDS ORDERED: SODIUM CHLORIDE 0.9% 1000ML 1,000 ML IV ONE (14:15)
[2022-04-02] MEDS ORDERED: SODIUM CHLORIDE 0.9% 500ML 500 ML IV ONE (14:15)
[2022-04-02] MEDS: AMITRIPTYLINE HCL 25 MG TAB PO SCH (21:50)
[2022-04-02] MEDS: GABAPENTIN 300 MG CAP PO SCH (21:51)
[2022-04-02] MEDS: TRAZODONE HCL 50 MG TAB PO SCH (21:51)
[2022-04-03] MEDS: HYDROMORPHONE 1MG/1ML INJ IV PRN ×3 (04:36→21:16)
[2022-04-03 04:55] VITALS: BP 115/73
[2022-04-03] MEDS: METRONIDAZOLE 500MG/NS 100ML 100 ML IV SCH ×3 (05:25→21:17)
[2022-04-03] MEDS: METOCLOPRAMIDE HCL 10 MG/2ML VIAL IV SCH ×4 (05:25→17:40)
[2022-04-03] MEDS: RIFAXIMIN 550 MG TABLET PO SCH ×3 (05:28→21:18)
[2022-04-03 06:17] LABS: BASOPHILS % 0.6 % (0.0-1.0); EOSINOPHILS # (AUTO) 0.1 (0.0-0.4); EOSINOPHILS % 1.6 % (0.0-6.0); HEMATOCRIT 30.7 % (34.2-44.1); HEMOGLOBIN 9.3 g/dL (12.0-16.0); LYMPHOCYTES % 32.2 % (18.0-39.1); MEAN CORPUSCULAR HEMOGLOBIN 28.6 pg (28-32); MEAN CORPUSCULAR HGB CONC 30.3 g/dL (31-35); MEAN CORPUSCULAR VOLUME 94.5 fL (81-99); MONOCYTES # (AUTO) 0.2 (0.2-0.8); MONOCYTES % 6.7 % (4.4-11.3); NEUTROPHILS # (AUTO) 1.8 (2.1-6.9); NEUTROPHILS % 58.6 % (38.7-80.0); PLATELET COUNT 207 x10e3/uL (140-360); RED BLOOD COUNT 3.25 x10e6/uL (3.6-5.1); RED CELL DISTRIBUTION WIDTH 12.8 % (11.7-14.4)
[2022-04-03 06:46] LABS: ALANINE AMINOTRANSFERASE 24 IU/L (0-55); ALBUMIN/GLOBULIN RATIO 1.2 (0.8-2.0); ALKALINE PHOSPHATASE 80 IU/L (40-150); ANION GAP 12.9 mmol/L (8-16); BLOOD UREA NITROGEN < 5 mg/dL (7-26); CALCIUM 8.4 mg/dL (8.4-10.2); CARBON DIOXIDE 30 mmol/L (22-29); CHLORIDE 104 mmol/L (98-107); CREATININE, SERUM 0.76 mg/dL (0.57-1.11); GLUCOSE 84 mg/dL (74-118); MAGNESIUM 1.8 MG/DL (1.3-2.1); POTASSIUM 3.9 mmol/L (3.5-5.1); SODIUM 143 mmol/L (136-145)
[2022-04-03 06:48] LABS: BUN/CREATININE RATIO 7 (6-25)
[2022-04-03 08:02] VITALS: BP 126/78
[2022-04-03 08:27] VITALS: BP 128/77
[2022-04-03] MEDS: LEVOTHYROXINE SODIUM 50 MCG TAB PO SCH (09:17)
[2022-04-03] MEDS: PREDNISONE 5 MG TAB PO SCH (09:17)
[2022-04-03] MEDS: FOLIC ACID 1 MG TAB PO SCH (09:17)
[2022-04-03] MEDS: DULOXETINE HCL 30 MG DELAYED RELEASE PO SCH ×2 (09:17→17:40)
[2022-04-03] MEDS: LUBIPROSTONE 24 MCG CAP PO SCH ×2 (09:17→17:40)
[2022-04-03] MEDS: CHOLECALCIFEROL 1,000 UNIT TAB PO SCH (10:26)
[2022-04-03] MEDS: SODIUM CHLORIDE 0.9% 1000ML 1,000 ML IV SCH (10:33)
[2022-04-03] MEDS: IRON SUCROSE 100 MG in SODIUM CHLORIDE 0.9% 100 ML IV SCH (10:33)
[2022-04-03 11:27] VITALS: BP 121/64
[2022-04-03 15:25] VITALS: BP 130/80
[2022-04-03] MEDS ORDERED: HYDROMORPHONE 1MG/1ML INJ IV ONE (15:45)
[2022-04-03 20:00] VITALS: BP 128/75
[2022-04-03] MEDS: TRAZODONE HCL 50 MG TAB PO SCH (21:17)
[2022-04-03] MEDS: GABAPENTIN 300 MG CAP PO SCH (21:18)
[2022-04-03] MEDS: AMITRIPTYLINE HCL 25 MG TAB PO SCH (21:18)
[2022-04-04] VITALS (8 sets, daily range): BP systolic 125–159; BP diastolic 65–101
[2022-04-04] MEDS ORDERED: CHLORDIAZEPOXIDE/CLIDINIUM 1 CAP PO SCH (01:00)
[2022-04-04] MEDS: METOCLOPRAMIDE HCL 10 MG/2ML VIAL IV SCH ×4 (02:00→16:14)
[2022-04-04] MEDS: HYDROMORPHONE 1MG/1ML INJ IV PRN (03:35)
[2022-04-04] MEDS: METRONIDAZOLE 500MG/NS 100ML 100 ML IV SCH ×3 (05:21→21:46)
[2022-04-04] MEDS: SODIUM CHLORIDE 0.9% 1000ML 1,000 ML IV SCH ×2 (05:21→13:37)
[2022-04-04] MEDS: RIFAXIMIN 550 MG TABLET PO SCH ×3 (05:21→21:55)
[2022-04-04 06:40] LABS: ALBUMIN 3.1 g/dL (3.5-5.0); CALCIUM 8.4 mg/dL (8.4-10.2); CHLORIDE 104 mmol/L (98-107); GLUCOSE 84 mg/dL (74-118); POTASSIUM 3.5 mmol/L (3.5-5.1); SODIUM 141 mmol/L (136-145)
[2022-04-04 07:01] LABS: ALANINE AMINOTRANSFERASE 24 IU/L (0-55); ALKALINE PHOSPHATASE 84 IU/L (40-150); ANION GAP 13.5 mmol/L (8-16); BLOOD UREA NITROGEN < 5 mg/dL (7-26); CARBON DIOXIDE 26 mmol/L (22-29); CREATININE, SERUM 0.76 mg/dL (0.57-1.11); MAGNESIUM 1.7 MG/DL (1.3-2.1)
[2022-04-04 07:02] LABS: BUN/CREATININE RATIO 7 (6-25)
[2022-04-04 07:28] LABS: BASOPHILS % 0.6 % (0.0-1.0); EOSINOPHILS # (AUTO) 0.1 (0.0-0.4); EOSINOPHILS % 1.6 % (0.0-6.0); HEMATOCRIT 29.1 % (34.2-44.1); HEMOGLOBIN 9.4 g/dL (12.0-16.0); LYMPHOCYTES # (AUTO) 1.1 (1.0-3.2); LYMPHOCYTES % 35.2 % (18.0-39.1); MEAN CORPUSCULAR HEMOGLOBIN 28.7 pg (28-32); MEAN CORPUSCULAR HGB CONC 32.3 g/dL (31-35); MONOCYTES # (AUTO) 0.3 (0.2-0.8); MONOCYTES % 8.2 % (4.4-11.3); NEUTROPHILS # (AUTO) 1.7 (2.1-6.9); NEUTROPHILS % 54.1 % (38.7-80.0); RED BLOOD COUNT 3.27 x10e6/uL (3.6-5.1); RED CELL DISTRIBUTION WIDTH 13.2 % (11.7-14.4)
[2022-04-04 07:30] LABS: PLATELET COUNT 195 x10e3/uL (140-360)
[2022-04-04] MEDS: DULOXETINE HCL 30 MG DELAYED RELEASE PO SCH ×2 (09:17→16:15)
[2022-04-04] MEDS: CHOLECALCIFEROL 1,000 UNIT TAB PO SCH (09:17)
[2022-04-04] MEDS: PREDNISONE 5 MG TAB PO SCH (09:17)
[2022-04-04] MEDS: LUBIPROSTONE 24 MCG CAP PO SCH ×2 (09:18→16:14)
[2022-04-04] MEDS: LEVOTHYROXINE SODIUM 50 MCG TAB PO SCH (09:18)
[2022-04-04] MEDS: CHLORDIAZEPOXIDE/CLIDINIUM 1 CAP PO SCH ×4 (09:19→21:46)
[2022-04-04] MEDS: FOLIC ACID 1 MG TAB PO SCH ×2 (09:19→09:58)
[2022-04-04] MEDS: IRON SUCROSE 100 MG in SODIUM CHLORIDE 0.9% 100 ML IV SCH (09:20)
[2022-04-04] MEDS: KETOROLAC TROMETHAMINE 30 MG/ML VIAL IV PRN ×3 (10:01→21:55)
[2022-04-04] MEDS: TRAZODONE HCL 50 MG TAB PO SCH (21:45)
[2022-04-04] MEDS: AMITRIPTYLINE HCL 25 MG TAB PO SCH (21:45)
[2022-04-04] MEDS: GABAPENTIN 300 MG CAP PO SCH (21:45)
[2022-04-05 00:32] VITALS: BP 124/65
[2022-04-05 03:04] VITALS: BP 124/65
[2022-04-05 04:12] LABS: CLARITY,URINE CLEAR (CLEAR); COLOR,URINE YELLOW (YELLOW); KETONES,URINE NEGATIVE (NEGATIVE); LEUKOCYTE ESTERASE ,URINE SMALL (NEGATIVE); NITRITE,URINE NEGATIVE (NEGATIVE); PROTEIN,URINE DIPSTICK NEGATIVE (NEGATIVE); URINE UROBILINOGEN 0.2 mg/dL (0.2 - 1)
[2022-04-05] MEDS: KETOROLAC TROMETHAMINE 30 MG/ML VIAL IV PRN ×2 (04:12→10:14)
[2022-04-05] MEDS: METOCLOPRAMIDE HCL 10 MG/2ML VIAL IV SCH ×2 (04:12→04:56)
[2022-04-05 04:15] LABS: BACTERIA,URINE FEW /HPF; EPITHELIAL CELLS,URINE MODERATE /LPF; RBC,URINE 0-5 /HPF (0-5); WBC,URINE (MAN) 21-50 /HPF (0-5)
[2022-04-05] MEDS: SODIUM CHLORIDE 0.9% 1000ML 1,000 ML IV SCH (04:56)
[2022-04-05] MEDS: RIFAXIMIN 550 MG TABLET PO SCH (04:56)
[2022-04-05] MEDS: METRONIDAZOLE 500MG/NS 100ML 100 ML IV SCH (04:56)
[2022-04-05 05:24] VITALS: BP 113/64
[2022-04-05 05:43] LABS: BASOPHILS % 0.7 % (0.0-1.0); EOSINOPHILS # (AUTO) 0.1 (0.0-0.4); EOSINOPHILS % 1.5 % (0.0-6.0); HEMATOCRIT 30.9 % (34.2-44.1); LYMPHOCYTES % 25.9 % (18.0-39.1); MEAN CORPUSCULAR HEMOGLOBIN 28.9 pg (28-32); MEAN CORPUSCULAR HGB CONC 32.4 g/dL (31-35); MEAN CORPUSCULAR VOLUME 89.3 fL (81-99); MONOCYTES # (AUTO) 0.3 (0.2-0.8); NEUTROPHILS # (AUTO) 2.6 (2.1-6.9); NEUTROPHILS % 64.4 % (38.7-80.0); PLATELET COUNT 196 x10e3/uL (140-360); RED BLOOD COUNT 3.46 x10e6/uL (3.6-5.1); RED CELL DISTRIBUTION WIDTH 13.4 % (11.7-14.4)
[2022-04-05 06:10] LABS: ANION GAP 13.5 mmol/L (8-16); CALCIUM 8.4 mg/dL (8.4-10.2); CREATININE, SERUM 0.79 mg/dL (0.57-1.11); MAGNESIUM 1.8 MG/DL (1.3-2.1); POTASSIUM 3.5 mmol/L (3.5-5.1)
[2022-04-05] MEDS: CHLORDIAZEPOXIDE/CLIDINIUM 1 CAP PO SCH ×2 (07:30→11:30)
[2022-04-05 08:00] VITALS: BP 133/62
[2022-04-05 08:43] VITALS: BP 133/62
[2022-04-05] MEDS ORDERED: KETOROLAC TROME10 MG PO (08:51)
[2022-04-05] MEDS ORDERED: AMITIZA24 MCG PO (08:51)
[2022-04-05] MEDS ORDERED: REGLAN5 MG PO (08:51)
[2022-04-05] MEDS ORDERED: PANTOPRAZOLE SO40 MG PO (08:51)
[2022-04-05] MEDS: DULOXETINE HCL 30 MG DELAYED RELEASE PO SCH (08:57)
[2022-04-05] MEDS: IRON SUCROSE 100 MG in SODIUM CHLORIDE 0.9% 100 ML IV SCH (08:57)
[2022-04-05] MEDS: FOLIC ACID 1 MG TAB PO SCH ×2 (08:57→09:00)
[2022-04-05] MEDS: LEVOTHYROXINE SODIUM 50 MCG TAB PO SCH (08:57)
[2022-04-05] MEDS: PREDNISONE 5 MG TAB PO SCH (08:57)
[2022-04-05] MEDS: CHOLECALCIFEROL 1,000 UNIT TAB PO SCH (08:57)
[2022-04-05] MEDS: LUBIPROSTONE 24 MCG CAP PO SCH (08:58)
[2022-04-05] MEDS ORDERED: CIPROFLOXACIN500 MG PO (09:31)
[2022-04-05] MEDS ORDERED: METRONIDAZOLE500 MG PO (09:31)
[2022-04-05] MEDS ORDERED: HEPARIN 500 UNITS/5ML MDV INJ ONE (10:45)
[2022-04-05 11:12] LABS: ENDOMYSIAL ANTIBODIES, IGA Negative (Negative)
[2022-04-05 12:00] VITALS: BP 135/75
[2022-04-05] MEDS ORDERED: METOCLOPRAMIDE HCL 10 MG TAB PO SCH (12:30)
[2022-04-05] MEDS ORDERED: METRONIDAZOLE 500 MG TAB PO SCH (14:00)
[2022-04-05] MEDS ORDERED: PANTOPRAZOLE SOD 40 MG TABEC PO SCH (21:00)
== END 2022-04-05 12:30 | disposition home or self-care (01) | DRG 872 ==
LOC: ER 19:33 → ERHOLD 22:38 → MED/SURG3 23:53 → OBSVTOIN 03-30 15:43
PROVIDERS: ADMIT Internal Medicine; ATTEND Internal Medicine
DX: A41.9 Sepsis, unspecified organism (principal); N30.00 Acute cystitis without hematuria; E27.1 Primary adrenocortical insufficiency; E87.20 Acidosis, unspecified; K56.41 Fecal impaction; F32.A Depression, unspecified; F41.9 Anxiety disorder, unspecified; E66.09 Other obesity due to excess calories; Z68.31 Body mass index [BMI] 31.0-31.9, adult; E03.9 Hypothyroidism, unspecified; F33.41 Major depressive disorder, recurrent, in partial remission; D50.9 Iron deficiency anemia, unspecified; D52.9 Folate deficiency anemia, unspecified; D51.9 Vitamin B12 deficiency anemia, unspecified; E55.9 Vitamin D deficiency, unspecified; G89.4 Chronic pain syndrome; Z85.3 Personal history of malignant neoplasm of breast; Z90.13 Acquired absence of bilateral breasts and nipples; Z98.84 Bariatric surgery status; Z88.0 Allergy status to penicillin; Z88.8 Allergy status to other drugs, medicaments and biological substances; Z91.040 Latex allergy status
CPT/HCPCS: 0223U; 36415; 74018; 74019; 74174; 74176; 80053; 81001; 82550; 82553; 82607; 82746; 82784; 83516; 83540; 83605; 83690; 83735; 84443; 84466; 84484; 85025; 85045; 85610; 85730; 86140; 86256; 87040; 87086; 93005; 96361; 99284; G0378; J0692; J1170; J1756; J1885; J2270; J2405; J2765; J3420; J7030; J7050; J7512; Q0162

== ENCOUNTER 2022-04-17 21:43 | Inpatient (IN) | payer MEDICARE ==
[~2022-04-17] VITALS: Ht 170.2 cm; Wt 99.8 kg
[~2022-04-17 21:43] MED LIST changes: +AMITIZA24 MCG PO; +CIPROFLOXACIN500 MG PO; +KETOROLAC TROME10 MG PO; +METRONIDAZOLE500 MG PO; +REGLAN5 MG PO
[2022-04-17] MEDS ORDERED: ONDANSETRON HCL INJ 2MG/ML 2ML 2 MG/ML VIAL IV STA (22:59)
[2022-04-17] MEDS ORDERED: Morphine 4mg INJECTION 4 MG/ML INJ IV ONE (23:00)
[2022-04-17] MEDS ORDERED: SODIUM CHLORIDE 0.9% 1000ML 1,000 ML IV ONE (23:00)
[2022-04-17] MEDS ORDERED: SODIUM CHLORIDE FLUSH 10 ML SYR IV PRN (23:01)
[2022-04-17 23:08] LABS: BASOPHILS # (AUTO) 0.1 (0.0-0.1); BASOPHILS % 0.9 % (0.0-1.0); EOSINOPHILS # (AUTO) 0.1 (0.0-0.4); EOSINOPHILS % 1.1 % (0.0-6.0); HEMATOCRIT 37.6 % (34.2-44.1); HEMOGLOBIN 11.5 g/dL (12.0-16.0); LYMPHOCYTES # (AUTO) 2.1 (1.0-3.2); LYMPHOCYTES % 37.5 % (18.0-39.1); MEAN CORPUSCULAR HEMOGLOBIN 29.3 pg (28-32); MEAN CORPUSCULAR HGB CONC 30.6 g/dL (31-35); MEAN CORPUSCULAR VOLUME 95.7 fL (81-99); MONOCYTES # (AUTO) 0.4 (0.2-0.8); MONOCYTES % 7.3 % (4.4-11.3); NEUTROPHILS # (AUTO) 2.9 (2.1-6.9); PLATELET COUNT 235 x10e3/uL (140-360); RED BLOOD COUNT 3.93 x10e6/uL (3.6-5.1); RED CELL DISTRIBUTION WIDTH 14.3 % (11.7-14.4)
[2022-04-17 23:14] LABS: CLARITY,URINE SL CLOUDY (CLEAR); COLOR,URINE YELLOW (YELLOW); KETONES,URINE NEGATIVE (NEGATIVE); LEUKOCYTE ESTERASE ,URINE NEGATIVE (NEGATIVE); NITRITE,URINE NEGATIVE (NEGATIVE); PROTEIN,URINE DIPSTICK NEGATIVE (NEGATIVE); URINE UROBILINOGEN 0.2 mg/dL (0.2 - 1)
[2022-04-17 23:14] LABS: INR 1.03; PARTIAL THROMBOPLASTIN TIME 27.6 seconds (23.8-35.5); PROTHROMBIN TIME 14.4 seconds (11.9-14.5)
[2022-04-17 23:15] LABS: AMPHETAMINES SCREEN,URINE NEGATIVE (NEGATIVE); BENZODIAZEPINES SCREEN,URINE POSITIVE (NEGATIVE); PHENCYCLIDINE SCREEN,URINE NEGATIVE (NEGATIVE)
[2022-04-17 23:18] LABS: BACTERIA,URINE FEW /HPF; EPITHELIAL CELLS,URINE MODERATE /LPF
[2022-04-17 23:22] LABS: ALBUMIN 3.6 g/dL (3.5-5.0); ALBUMIN/GLOBULIN RATIO 1.1 (0.8-2.0); CALCIUM 9.3 mg/dL (8.4-10.2); CREATININE, SERUM 1.09 mg/dL (0.57-1.11)
[2022-04-18] VITALS (11 sets, daily range): BP systolic 116–153; BP diastolic 66–87
[2022-04-18] MEDS ORDERED: IOPAMIDOL 370 MG/ML 100 ML INFUS..BTL INJ ONE (00:11)
[2022-04-18] MEDS ORDERED: KETOROLAC TROMETHAMINE 30 MG/ML VIAL IV STA (01:29)
[2022-04-18] MEDS ORDERED: DICYCLOMINE HCL 20 MG/2 ML VIAL IM ONE ×2 (01:30→01:45)
[2022-04-18] MEDS ORDERED: KETOROLAC TROMETHAMINE 30 MG/ML VIAL ONE (01:45)
[2022-04-18] MEDS ORDERED: KETOROLAC TROMETHAMINE 30 MG/ML VIAL IV PRN (02:45)
[2022-04-18] MEDS: SODIUM CHLORIDE 0.9% 1000ML 1,000 ML IV SCH ×3 (02:45→19:12)
[2022-04-18] MEDS ORDERED: ONDANSETRON HCL INJ 2MG/ML 2ML 2 MG/ML VIAL IV PRN (02:45)
[2022-04-18] MEDS: KETOROLAC TROMETHAMINE 30 MG/ML VIAL IV PRN ×3 (07:12→19:45)
[2022-04-18] MEDS: PROMETHAZINE 12.5MG/ NACL 0.9% 12.5 MG/50 ML BAG IV PRN ×2 (13:35→22:30)
[2022-04-18] MEDS ORDERED: ACETAMINOPHEN 1000 MG/100 ML IV PRN (18:45)
[2022-04-18] MEDS ORDERED: LORAZEPAM INJ 2 MG/ML VIAL IV PRN (22:30)
[2022-04-18] MEDS: ENOXAPARIN SODIUM INJ 100 MG/ML SYR SC SCH (22:33)
[2022-04-19] VITALS (9 sets, daily range): BP systolic 124–153; BP diastolic 72–85
[2022-04-19] MEDS: KETOROLAC TROMETHAMINE 30 MG/ML VIAL IV PRN ×3 (01:41→21:09)
[2022-04-19] MEDS: SODIUM CHLORIDE 0.9% 1000ML 1,000 ML IV SCH ×3 (02:52→21:10)
[2022-04-19 07:39] LABS: BASOPHILS % 0.7 % (0.0-1.0); EOSINOPHILS # (AUTO) 0.1 (0.0-0.4); EOSINOPHILS % 2.8 % (0.0-6.0); HEMATOCRIT 34.7 % (34.2-44.1); HEMOGLOBIN 10.5 g/dL (12.0-16.0); LYMPHOCYTES # (AUTO) 0.9 (1.0-3.2); LYMPHOCYTES % 32.4 % (18.0-39.1); MEAN CORPUSCULAR HEMOGLOBIN 29.7 pg (28-32); MEAN CORPUSCULAR HGB CONC 30.3 g/dL (31-35); MEAN CORPUSCULAR VOLUME 98.3 fL (81-99); MONOCYTES # (AUTO) 0.2 (0.2-0.8); MONOCYTES % 6.3 % (4.4-11.3); NEUTROPHILS # (AUTO) 1.6 (2.1-6.9); NEUTROPHILS % 57.8 % (38.7-80.0); PLATELET COUNT 151 x10e3/uL (140-360); RED BLOOD COUNT 3.53 x10e6/uL (3.6-5.1); RED CELL DISTRIBUTION WIDTH 14.4 % (11.7-14.4)
[2022-04-19 07:48] LABS: INR 1.01; PROTHROMBIN TIME 14.2 seconds (11.9-14.5)
[2022-04-19] MEDS: SODIUM CHLORIDE FLUSH 10 ML SYR IV SCH ×2 (09:00→21:09)
[2022-04-19 09:04] LABS: ALBUMIN/GLOBULIN RATIO 1.2 (0.8-2.0); ANION GAP 11.7 mmol/L (8-16); CALCIUM 7.7 mg/dL (8.4-10.2); CREATININE, SERUM 0.66 mg/dL (0.57-1.11); MAGNESIUM 1.6 MG/DL (1.3-2.1); POTASSIUM 3.7 mmol/L (3.5-5.1)
[2022-04-19] MEDS: ENOXAPARIN SODIUM INJ 100 MG/ML SYR SC SCH ×2 (09:23→21:26)
[2022-04-19] MEDS: PROMETHAZINE 12.5MG/ NACL 0.9% 12.5 MG/50 ML BAG IV PRN ×2 (12:39→23:11)
[2022-04-20] VITALS: BP 139/91
[2022-04-20 04:00] VITALS: BP 129/77
[2022-04-20] MEDS: SODIUM CHLORIDE 0.9% 1000ML 1,000 ML IV SCH ×2 (04:12→11:00)
[2022-04-20 06:03] LABS: BASOPHILS % 1.1 % (0.0-1.0); EOSINOPHILS # (AUTO) 0.1 (0.0-0.4); EOSINOPHILS % 3.4 % (0.0-6.0); HEMATOCRIT 34.1 % (34.2-44.1); HEMOGLOBIN 10.5 g/dL (12.0-16.0); LYMPHOCYTES # (AUTO) 0.9 (1.0-3.2); LYMPHOCYTES % 35.1 % (18.0-39.1); MEAN CORPUSCULAR HEMOGLOBIN 29.8 pg (28-32); MEAN CORPUSCULAR HGB CONC 30.8 g/dL (31-35); MEAN CORPUSCULAR VOLUME 96.9 fL (81-99); MONOCYTES # (AUTO) 0.2 (0.2-0.8); MONOCYTES % 6.4 % (4.4-11.3); NEUTROPHILS # (AUTO) 1.4 (2.1-6.9); PLATELET COUNT 159 x10e3/uL (140-360); RED BLOOD COUNT 3.52 x10e6/uL (3.6-5.1); RED CELL DISTRIBUTION WIDTH 13.8 % (11.7-14.4)
[2022-04-20 06:36] LABS: ALANINE AMINOTRANSFERASE 11 IU/L (0-55); ALBUMIN/GLOBULIN RATIO 1.1 (0.8-2.0); ALKALINE PHOSPHATASE 58 IU/L (40-150); ANION GAP 12.4 mmol/L (8-16); BLOOD UREA NITROGEN < 5 mg/dL (7-26); CALCIUM 8.1 mg/dL (8.4-10.2); CARBON DIOXIDE 26 mmol/L (22-29); CHLORIDE 106 mmol/L (98-107); CREATININE, SERUM 0.66 mg/dL (0.57-1.11); GLUCOSE 84 mg/dL (74-118); MAGNESIUM 1.7 MG/DL (1.3-2.1); POTASSIUM 3.4 mmol/L (3.5-5.1); SODIUM 141 mmol/L (136-145)
[2022-04-20 06:39] LABS: BUN/CREATININE RATIO 8 (6-25)
[2022-04-20] MEDS: ENOXAPARIN SODIUM INJ 100 MG/ML SYR SC SCH (07:41)
[2022-04-20] MEDS: KETOROLAC TROMETHAMINE 30 MG/ML VIAL IV PRN (07:41)
[2022-04-20 08:08] VITALS: BP 153/76
[2022-04-20] MEDS ORDERED: POTASSIUM CHLORIDE 10MEQ EA PO ONE (08:15)
[2022-04-20 08:38] VITALS: BP 153/76
[2022-04-20] MEDS ORDERED: HEPARIN 500 UNITS/5ML MDV INJ SCH (08:45)
[2022-04-20] MEDS: SODIUM CHLORIDE FLUSH 10 ML SYR IV SCH (09:00)
== END 2022-04-20 11:35 | disposition home or self-care (01) | DRG 389 ==
LOC: ER 21:58 → ERHOLD 04-18 02:37 → MED/SURG2 04-18 10:38
PROVIDERS: ADMIT Internal Medicine; ATTEND Internal Medicine
DX: K56.609 Unspecified intestinal obstruction, unspecified as to partial versus complete obstruction (principal); E27.1 Primary adrenocortical insufficiency; N39.0 Urinary tract infection, site not specified; F41.9 Anxiety disorder, unspecified; E03.9 Hypothyroidism, unspecified; Z86.11 Personal history of tuberculosis; Z98.84 Bariatric surgery status; Z85.3 Personal history of malignant neoplasm of breast; Z90.13 Acquired absence of bilateral breasts and nipples; F33.41 Major depressive disorder, recurrent, in partial remission; Z79.899 Other long term (current) drug therapy; Z20.822 Contact with and (suspected) exposure to COVID-19
CPT/HCPCS: 0223U; 36415; 71045; 74018; 74022; 74177; 80053; 80307; 81001; 83690; 83735; 84484; 85025; 85610; 85730; 93005; 99284; J0500; J0696; J1650; J1885; J2270; J2405; J2550; J7030; Q9967

== ENCOUNTER 2022-06-22 13:08 | Inpatient (IN) | payer MEDICARE, OTHER ==
[~2022-06-22] VITALS: Ht 170.2 cm; Wt 90.3 kg
[2022-06-22 15:12] LABS: BASOPHILS % 0.6 % (0.0-1.0); EOSINOPHILS # (AUTO) 0.1 (0.0-0.4); EOSINOPHILS % 1.2 % (0.0-6.0); HEMATOCRIT 48.4 % (34.2-44.1); HEMOGLOBIN 15.2 g/dL (12.0-16.0); LYMPHOCYTES # (AUTO) 0.9 (1.0-3.2); LYMPHOCYTES % 16.8 % (18.0-39.1); MEAN CORPUSCULAR HGB CONC 31.4 g/dL (31-35); MEAN CORPUSCULAR VOLUME 98.8 fL (81-99); MONOCYTES # (AUTO) 0.3 (0.2-0.8); MONOCYTES % 6.4 % (4.4-11.3); NEUTROPHILS # (AUTO) 3.9 (2.1-6.9); NEUTROPHILS % 74.6 % (38.7-80.0); RED CELL DISTRIBUTION WIDTH 12.5 % (11.7-14.4)
[2022-06-22 15:13] LABS: PLATELET COUNT 204 x10e3/uL (140-360)
[2022-06-22 15:17] LABS: CLARITY,URINE SL CLOUDY (CLEAR); COLOR,URINE YELLOW (YELLOW); KETONES,URINE TRACE (NEGATIVE); LEUKOCYTE ESTERASE ,URINE MODERATE (NEGATIVE); NITRITE,URINE NEGATIVE (NEGATIVE); PROTEIN,URINE DIPSTICK NEGATIVE (NEGATIVE); URINE UROBILINOGEN 2 mg/dL (0.2 - 1)
[2022-06-22 15:28] LABS: BACTERIA,URINE MODERATE /HPF; EPITHELIAL CELLS,URINE MANY /LPF; WBC,URINE (MAN) >50 /HPF (0-5)
[2022-06-22] MEDS ORDERED: SODIUM CHLORIDE 0.9% 1000ML 1,000 ML IV ONE (15:30)
[2022-06-22 15:32] LABS: INR 1.03; PROTHROMBIN TIME 13.7 seconds (11.9-14.5)
[2022-06-22 15:33] LABS: PARTIAL THROMBOPLASTIN TIME 32.6 seconds (23.8-35.5)
[2022-06-22] MEDS ORDERED: ONDANSETRON HCL INJ 2MG/ML 2ML 2 MG/ML VIAL IV STA (15:33)
[2022-06-22 15:57] LABS: ALANINE AMINOTRANSFERASE 17 IU/L (0-55); ALBUMIN 3.9 g/dL (3.5-5.0); ALBUMIN/GLOBULIN RATIO 0.9 (0.8-2.0); ALKALINE PHOSPHATASE 149 IU/L (40-150); ANION GAP 18.1 mmol/L (8-16); BLOOD UREA NITROGEN 14 mg/dL (7-26); BUN/CREATININE RATIO 17 (6-25); CALCIUM 9.8 mg/dL (8.4-10.2); CARBON DIOXIDE 23 mmol/L (22-29); CHLORIDE 102 mmol/L (98-107); CREATININE, SERUM 0.83 mg/dL (0.57-1.11); GLUCOSE 81 mg/dL (74-118); POTASSIUM 4.1 mmol/L (3.5-5.1); SODIUM 139 mmol/L (136-145)
[2022-06-22] MEDS: SODIUM CHLORIDE 0.9% 1000ML 1,000 ML IV SCH ×2 (17:00→23:30)
[2022-06-22] MEDS ORDERED: ACETAMINOPHEN 325 MG TAB PO ONE (18:45)
[2022-06-22] MEDS ORDERED: ACETAMINOPHEN 325 MG TAB ONE (18:56)
[2022-06-22 20:00] VITALS: BP 159/82
[2022-06-22 20:10] VITALS: BP 159/82
[2022-06-22] MEDS ORDERED: PREGABALIN 50 MG CAP PO PRN (21:00)
[2022-06-22] MEDS ORDERED: XIFAXAN550 MG PO (22:03)
[2022-06-22] MEDS: AMITRIPTYLINE HCL 25 MG TAB PO SCH (23:27)
[2022-06-22] MEDS: ZIPRASIDONE 20 MG CAP PO SCH (23:27)
[2022-06-22] MEDS: TRAZODONE HCL 50 MG TAB PO SCH (23:27)
[2022-06-22] MEDS: GABAPENTIN 300 MG CAP PO SCH (23:28)
[2022-06-23] VITALS (7 sets, daily range): BP systolic 114–138; BP diastolic 63–75
[2022-06-23 06:14] LABS: BASOPHILS % 0.5 % (0.0-1.0); EOSINOPHILS # (AUTO) 0.1 (0.0-0.4); EOSINOPHILS % 1.9 % (0.0-6.0); HEMATOCRIT 37.8 % (34.2-44.1); LYMPHOCYTES # (AUTO) 1.1 (1.0-3.2); LYMPHOCYTES % 28.3 % (18.0-39.1); MEAN CORPUSCULAR HEMOGLOBIN 31.3 pg (28-32); MEAN CORPUSCULAR HGB CONC 31.7 g/dL (31-35); MEAN CORPUSCULAR VOLUME 98.4 fL (81-99); MONOCYTES # (AUTO) 0.3 (0.2-0.8); MONOCYTES % 8.8 % (4.4-11.3); NEUTROPHILS # (AUTO) 2.3 (2.1-6.9); NEUTROPHILS % 60.2 % (38.7-80.0); PLATELET COUNT 213 x10e3/uL (140-360); RED BLOOD COUNT 3.84 x10e6/uL (3.6-5.1); RED CELL DISTRIBUTION WIDTH 12.7 % (11.7-14.4)
[2022-06-23 06:37] LABS: ANION GAP 14.5 mmol/L (8-16); CALCIUM 8.3 mg/dL (8.4-10.2); CREATININE, SERUM 0.81 mg/dL (0.57-1.11); POTASSIUM 3.5 mmol/L (3.5-5.1)
[2022-06-23] MEDS: SODIUM CHLORIDE 0.9% 1000ML 1,000 ML IV SCH ×2 (08:15→12:56)
[2022-06-23] MEDS ORDERED: HYDROCODONE/APAP 7.5MG-325MG 1 EA TAB PO PRN (11:45)
[2022-06-23] MEDS ORDERED: ACETAMINOPHEN 325 MG TAB PO PRN (11:45)
[2022-06-23] MEDS: ONDANSETRON HCL INJ 2MG/ML 2ML 2 MG/ML VIAL IV PRN ×2 (15:27→20:45)
[2022-06-23] MEDS: Morphine 4mg INJECTION 4 MG/ML INJ IV PRN ×2 (15:28→20:46)
[2022-06-23] MEDS ORDERED: ALTEPLASE RECOMBINANT 2 MG/2 ML VIAL IV PRN (22:00)
[2022-06-23] MEDS: TRAZODONE HCL 50 MG TAB PO SCH (22:19)
[2022-06-23] MEDS: ZIPRASIDONE 20 MG CAP PO SCH (22:20)
[2022-06-23] MEDS: AMITRIPTYLINE HCL 25 MG TAB PO SCH (22:20)
[2022-06-23] MEDS: GABAPENTIN 300 MG CAP PO SCH (22:20)
[2022-06-24] VITALS (8 sets, daily range): BP systolic 117–149; BP diastolic 59–78
[2022-06-24] MEDS: Morphine 4mg INJECTION 4 MG/ML INJ IV PRN ×7 (00:53→21:36)
[2022-06-24] MEDS: ONDANSETRON HCL INJ 2MG/ML 2ML 2 MG/ML VIAL IV PRN ×6 (00:53→21:36)
[2022-06-24] MEDS: SODIUM CHLORIDE 0.9% 1000ML 1,000 ML IV SCH ×2 (04:51→13:41)
[2022-06-24 07:02] LABS: MAGNESIUM 1.5 MG/DL (1.3-2.1); PHOSPHORUS 4.5 MG/DL (2.3-4.7)
[2022-06-24 07:25] LABS: THYROID STIMULATING HORMONE 1.394 uIU/mL (0.350-4.940)
[2022-06-24 07:35] LABS: ANION GAP 16.9 mmol/L (8-16); CALCIUM 8.1 mg/dL (8.4-10.2); CREATININE, SERUM 0.83 mg/dL (0.57-1.11); POTASSIUM 3.9 mmol/L (3.5-5.1)
[2022-06-24] MEDS ORDERED: MAGNESIUM SULFATE 2GM/50ML IV ONE (10:30)
[2022-06-24] MEDS ORDERED: MAGNESIUM SULFATE 2GM/50ML 50 ML IV ONE (10:45)
[2022-06-24] MEDS ORDERED: IOPAMIDOL 370 MG/ML 100 ML INFUS..BTL INJ ONE (11:20)
[2022-06-24] MEDS: TRAZODONE HCL 50 MG TAB PO SCH (21:11)
[2022-06-24] MEDS: AMITRIPTYLINE HCL 25 MG TAB PO SCH (21:12)
[2022-06-24] MEDS: GABAPENTIN 300 MG CAP PO SCH (21:13)
[2022-06-24] MEDS: ZIPRASIDONE 20 MG CAP PO SCH (21:13)
[2022-06-25] VITALS: BP 110/69
[2022-06-25] MEDS: SODIUM CHLORIDE 0.9% 1000ML 1,000 ML IV SCH ×3 (00:28→20:53)
[2022-06-25 04:00] VITALS: BP 123/54
[2022-06-25] MEDS: Morphine 4mg INJECTION 4 MG/ML INJ IV PRN ×6 (05:22→20:53)
[2022-06-25] MEDS: ONDANSETRON HCL INJ 2MG/ML 2ML 2 MG/ML VIAL IV PRN ×4 (05:22→20:53)
[2022-06-25 06:20] LABS: BASOPHILS % 0.3 % (0.0-1.0); EOSINOPHILS # (AUTO) 0.1 (0.0-0.4); EOSINOPHILS % 0.8 % (0.0-6.0); HEMATOCRIT 40.9 % (34.2-44.1); HEMOGLOBIN 12.5 g/dL (12.0-16.0); LYMPHOCYTES # (AUTO) 1.5 (1.0-3.2); LYMPHOCYTES % 22.4 % (18.0-39.1); MEAN CORPUSCULAR HEMOGLOBIN 31.1 pg (28-32); MEAN CORPUSCULAR HGB CONC 30.6 g/dL (31-35); MEAN CORPUSCULAR VOLUME 101.7 fL (81-99); MONOCYTES # (AUTO) 0.5 (0.2-0.8); MONOCYTES % 7.5 % (4.4-11.3); NEUTROPHILS # (AUTO) 4.5 (2.1-6.9); NEUTROPHILS % 68.7 % (38.7-80.0); PLATELET COUNT 190 x10e3/uL (140-360); RED BLOOD COUNT 4.02 x10e6/uL (3.6-5.1); RED CELL DISTRIBUTION WIDTH 12.8 % (11.7-14.4)
[2022-06-25 06:56] LABS: ANION GAP 14.1 mmol/L (8-16); CREATININE, SERUM 0.76 mg/dL (0.57-1.11); POTASSIUM 4.1 mmol/L (3.5-5.1)
[2022-06-25 08:00] VITALS: BP 107/60
[2022-06-25 08:45] VITALS: BP 123/54
[2022-06-25 16:38] VITALS: BP 143/93
[2022-06-25] MEDS: ENOXAPARIN SOD INJ 40 MG/0.4 ML SYR SC SCH (17:26)
[2022-06-25 20:00] VITALS: BP 119/59
[2022-06-25] MEDS: TRAZODONE HCL 50 MG TAB PO SCH (22:23)
[2022-06-25] MEDS: ZIPRASIDONE 20 MG CAP PO SCH (22:24)
[2022-06-25] MEDS: GABAPENTIN 300 MG CAP PO SCH (22:24)
[2022-06-25] MEDS: AMITRIPTYLINE HCL 25 MG TAB PO SCH (22:24)
[2022-06-26] VITALS: BP 115/58
[2022-06-26 04:00] VITALS: BP 138/67
[2022-06-26] MEDS: Morphine 4mg INJECTION 4 MG/ML INJ IV PRN ×4 (05:00→16:29)
[2022-06-26] MEDS: ONDANSETRON HCL INJ 2MG/ML 2ML 2 MG/ML VIAL IV PRN ×4 (05:00→16:29)
[2022-06-26 05:40] LABS: BASOPHILS % 0.4 % (0.0-1.0); EOSINOPHILS # (AUTO) 0.1 (0.0-0.4); EOSINOPHILS % 1.6 % (0.0-6.0); HEMATOCRIT 35.7 % (34.2-44.1); LYMPHOCYTES # (AUTO) 0.9 (1.0-3.2); LYMPHOCYTES % 18.3 % (18.0-39.1); MEAN CORPUSCULAR HEMOGLOBIN 30.9 pg (28-32); MEAN CORPUSCULAR HGB CONC 30.8 g/dL (31-35); MEAN CORPUSCULAR VOLUME 100.3 fL (81-99); MONOCYTES # (AUTO) 0.5 (0.2-0.8); MONOCYTES % 9.4 % (4.4-11.3); NEUTROPHILS # (AUTO) 3.5 (2.1-6.9); NEUTROPHILS % 69.9 % (38.7-80.0); PLATELET COUNT 190 x10e3/uL (140-360); RED BLOOD COUNT 3.56 x10e6/uL (3.6-5.1); RED CELL DISTRIBUTION WIDTH 12.6 % (11.7-14.4)
[2022-06-26 06:19] LABS: ALBUMIN 2.7 g/dL (3.5-5.0); ALBUMIN/GLOBULIN RATIO 0.9 (0.8-2.0); ANION GAP 12.8 mmol/L (8-16); CALCIUM 8.5 mg/dL (8.4-10.2); CREATININE, SERUM 0.68 mg/dL (0.57-1.11); MAGNESIUM 1.4 MG/DL (1.3-2.1); POTASSIUM 3.8 mmol/L (3.5-5.1)
[2022-06-26] MEDS: SODIUM CHLORIDE 0.9% 1000ML 1,000 ML IV SCH ×2 (06:20→16:37)
[2022-06-26 07:00] VITALS: BP 138/67
[2022-06-26 08:50] VITALS: BP 113/69
[2022-06-26] MEDS: ENOXAPARIN SOD INJ 40 MG/0.4 ML SYR SC SCH (16:28)
== END 2022-06-26 20:48 | disposition short-term general hospital (02) | DRG 394 ==
LOC: ER 13:16 → ERHOLD 16:17 → MED/SURG2 20:00
PROVIDERS: ADMIT Internal Medicine; ATTEND Internal Medicine
DX: K63.2 Fistula of intestine (principal); E27.1 Primary adrenocortical insufficiency; K56.609 Unspecified intestinal obstruction, unspecified as to partial versus complete obstruction; R17 Unspecified jaundice; K91.2 Postsurgical malabsorption, not elsewhere classified; N30.30 Trigonitis without hematuria; R56.9 Unspecified convulsions; Z85.3 Personal history of malignant neoplasm of breast; Z90.13 Acquired absence of bilateral breasts and nipples; E03.9 Hypothyroidism, unspecified; F41.9 Anxiety disorder, unspecified; G89.4 Chronic pain syndrome; F32.A Depression, unspecified; Z98.84 Bariatric surgery status; N30.90 Cystitis, unspecified without hematuria; B96.89 Other specified bacterial agents as the cause of diseases classified elsewhere
CPT/HCPCS: 0223U; 36415; 70450; 71045; 74018; 74177; 76705; 80048; 80053; 81001; 82533; 82607; 82746; 83735; 84100; 84443; 84484; 85025; 85610; 85730; 87086; 93005; 93306; 96361; 99284; J0692; J1650; J2185; J2270; J2405; J2997; J3475; J7030; Q9967

== ENCOUNTER 2022-08-13 10:57 | Emergency (ER) | payer MEDICARE, OTHER ==
[~2022-08-13] VITALS: Ht 170.2 cm; Wt 88.5 kg
[~2022-08-13 10:57] MED LIST changes: +XIFAXAN550 MG PO
[2022-08-13] MEDS ORDERED: ACETAMINOPHEN 325 MG TAB PO ONE (11:30)
[2022-08-13] MEDS ORDERED: SODIUM CHLORIDE 0.9% 1000ML 1,000 ML IV SCH (11:30)
== END 2022-08-13 14:59 | disposition home or self-care (01) ==
LOC: ER 11:05
DX: R51.9 Headache, unspecified (principal); W06.XXXA Fall from bed, initial encounter; Y92.003 Bedroom of unspecified non-institutional (private) residence as the place of occurrence of the external cause; R11.2 Nausea with vomiting, unspecified; E03.9 Hypothyroidism, unspecified; F41.9 Anxiety disorder, unspecified; F32.A Depression, unspecified; Z91.040 Latex allergy status; Z88.0 Allergy status to penicillin; Z91.048 Other nonmedicinal substance allergy status
CPT/HCPCS: 70450; 71045; 93005; 99283

== ENCOUNTER 2022-09-17 14:24 | Inpatient (IN) | payer MEDICARE, OTHER ==
[~2022-09-17] VITALS: Ht 170.2 cm; Wt 83.9 kg
[2022-09-17 16:47] LABS: BASOPHILS % 0.5 % (0.0-1.0); EOSINOPHILS % 0.4 % (0.0-6.0); HEMATOCRIT 45.5 % (34.2-44.1); HEMOGLOBIN 15.3 g/dL (12.0-16.0); LYMPHOCYTES # (AUTO) 1.5 (1.0-3.2); LYMPHOCYTES % 18.3 % (18.0-39.1); MEAN CORPUSCULAR HEMOGLOBIN 31.5 pg (28-32); MEAN CORPUSCULAR HGB CONC 33.6 g/dL (31-35); MEAN CORPUSCULAR VOLUME 93.6 fL (81-99); MONOCYTES # (AUTO) 0.4 (0.2-0.8); NEUTROPHILS # (AUTO) 6.1 (2.1-6.9); NEUTROPHILS % 75.4 % (38.7-80.0); PLATELET COUNT 264 x10e3/uL (140-360); RED BLOOD COUNT 4.86 x10e6/uL (3.6-5.1)
[2022-09-17 17:51] LABS: ALBUMIN 2.9 g/dL (3.5-5.0); ALBUMIN/GLOBULIN RATIO 0.8 (0.8-2.0); CALCIUM 8.5 mg/dL (8.4-10.2); CREATININE, SERUM 0.92 mg/dL (0.57-1.11)
[2022-09-17] MEDS ORDERED: HYDROCODONE/APAP 5MG-325MG TAB PO ONE (18:00)
[2022-09-17] MEDS ORDERED: Morphine 4mg INJECTION 4 MG/ML INJ IM ONE (18:00)
[2022-09-18] MEDS ORDERED: METRONIDAZOLE 500MG/NS 100ML 100 ML IV SCH
[2022-09-18] MEDS: SODIUM CHLORIDE 0.9% 1000ML 1,000 ML IV SCH ×2 (02:07→04:00)
[2022-09-18 07:00] LABS: BASOPHILS % 0.4 % (0.0-1.0); EOSINOPHILS % 0.8 % (0.0-6.0); HEMATOCRIT 35.4 % (34.2-44.1); HEMOGLOBIN 11.7 g/dL (12.0-16.0); LYMPHOCYTES # (AUTO) 1.2 (1.0-3.2); LYMPHOCYTES % 25.3 % (18.0-39.1); MEAN CORPUSCULAR HEMOGLOBIN 30.8 pg (28-32); MEAN CORPUSCULAR HGB CONC 33.1 g/dL (31-35); MEAN CORPUSCULAR VOLUME 93.2 fL (81-99); MONOCYTES # (AUTO) 0.4 (0.2-0.8); MONOCYTES % 8.3 % (4.4-11.3); NEUTROPHILS # (AUTO) 3.1 (2.1-6.9); NEUTROPHILS % 64.8 % (38.7-80.0); PLATELET COUNT 197 x10e3/uL (140-360); RED CELL DISTRIBUTION WIDTH 12.8 % (11.7-14.4)
[2022-09-18 07:23] LABS: ANION GAP 13.2 mmol/L (8-16); CALCIUM 7.8 mg/dL (8.4-10.2); CREATININE, SERUM 0.67 mg/dL (0.57-1.11); POTASSIUM 3.2 mmol/L (3.5-5.1)
[2022-09-18] MEDS ORDERED: IOPAMIDOL 370 MG/ML 100 ML INFUS..BTL INJ ONE (09:45)
[2022-09-18] MEDS: SOD CHL 0.45%/POT CHL 20MEQ 1,000 ML IV SCH ×2 (10:35→20:19)
[2022-09-18] MEDS: METRONIDAZOLE 500MG/NS 100ML 100 ML IV SCH ×3 (10:35→21:39)
[2022-09-18] MEDS: ONDANSETRON HCL INJ 2MG/ML 2ML 2 MG/ML VIAL IV PRN ×3 (10:36→20:14)
[2022-09-18] MEDS: Morphine 4mg INJECTION 4 MG/ML INJ IV PRN ×3 (10:36→20:14)
[2022-09-18 16:10] VITALS: BP 123/83
[2022-09-18 16:24] VITALS: BP 123/83
[2022-09-18 16:37] VITALS: BP 123/83
[2022-09-18 17:01] LABS: CLARITY,URINE TURBID (CLEAR); COLOR,URINE YELLOW (YELLOW); KETONES,URINE 2+ (NEGATIVE); LEUKOCYTE ESTERASE ,URINE SMALL (NEGATIVE); NITRITE,URINE NEGATIVE (NEGATIVE); PROTEIN,URINE DIPSTICK >=300 (NEGATIVE); URINE UROBILINOGEN 1 mg/dL (0.2 - 1)
[2022-09-18 17:10] LABS: BACTERIA,URINE MANY /HPF; EPITHELIAL CELLS,URINE MANY /LPF; RBC,URINE 21-50 /HPF (0-5); WBC,URINE (MAN) 21-50 /HPF (0-5)
[2022-09-18] MEDS: DIPHENHYDRAMINE HCL 25 MG CAP PO PRN (20:12)
[2022-09-18 20:37] VITALS: BP 128/74
[2022-09-18 23:08] VITALS: BP 128/74
[2022-09-19 00:46] VITALS: BP 127/68
[2022-09-19] MEDS: METRONIDAZOLE 500MG/NS 100ML 100 ML IV SCH ×4 (03:30→20:18)
[2022-09-19 05:30] VITALS: BP 121/71
[2022-09-19] MEDS: Morphine 4mg INJECTION 4 MG/ML INJ IV PRN ×4 (06:06→21:29)
[2022-09-19] MEDS: ONDANSETRON HCL INJ 2MG/ML 2ML 2 MG/ML VIAL IV PRN ×4 (06:06→21:28)
[2022-09-19] MEDS: SOD CHL 0.45%/POT CHL 20MEQ 1,000 ML IV SCH ×2 (06:08→17:07)
[2022-09-19 06:23] LABS: BASOPHILS # (AUTO) 0.1 (0.0-0.1); BASOPHILS % 1.1 % (0.0-1.0); EOSINOPHILS % 0.6 % (0.0-6.0); HEMATOCRIT 45.4 % (34.2-44.1); HEMOGLOBIN 13.6 g/dL (12.0-16.0); LYMPHOCYTES # (AUTO) 0.8 (1.0-3.2); LYMPHOCYTES % 17.7 % (18.0-39.1); MEAN CORPUSCULAR HEMOGLOBIN 30.8 pg (28-32); MONOCYTES # (AUTO) 0.3 (0.2-0.8); MONOCYTES % 7.2 % (4.4-11.3); NEUTROPHILS # (AUTO) 3.5 (2.1-6.9); PLATELET COUNT 132 x10e3/uL (140-360); RED BLOOD COUNT 4.41 x10e6/uL (3.6-5.1); RED CELL DISTRIBUTION WIDTH 12.9 % (11.7-14.4)
[2022-09-19 06:27] LABS: MEAN CORPUSCULAR VOLUME 102.9 fL (81-99)
[2022-09-19 07:04] LABS: ALBUMIN 2.4 g/dL (3.5-5.0); ALBUMIN/GLOBULIN RATIO 0.8 (0.8-2.0); ANION GAP 14.1 mmol/L (8-16); CALCIUM 7.8 mg/dL (8.4-10.2); CREATININE, SERUM 0.67 mg/dL (0.57-1.11); MAGNESIUM 1.5 MG/DL (1.3-2.1); PHOSPHORUS 3.4 MG/DL (2.3-4.7); POTASSIUM 4.1 mmol/L (3.5-5.1)
[2022-09-19 07:45] LABS: INR 1.17; PARTIAL THROMBOPLASTIN TIME 30.4 seconds (23.8-35.5); PROTHROMBIN TIME 15.4 seconds (11.9-14.5)
[2022-09-19 08:00] VITALS: BP 144/70
[2022-09-19 08:20] VITALS: BP 144/70
[2022-09-19] MEDS ORDERED: CLONAZEPAM 1 MG TAB PO PRN (09:00)
[2022-09-19] MEDS ORDERED: MECLIZINE HCL 12.5 MG TAB PO PRN (09:00)
[2022-09-19] MEDS ORDERED: LEVOTHYROXINE SODIUM 50 MCG TAB PO SCH (09:45)
[2022-09-19] MEDS: RIFAXIMIN 550 MG TABLET PO SCH ×2 (10:25→16:59)
[2022-09-19] MEDS: DULOXETINE HCL 30 MG DELAYED RELEASE PO SCH ×2 (10:25→16:59)
[2022-09-19] MEDS: DIPHENHYDRAMINE HCL 25 MG CAP PO PRN (13:28)
[2022-09-19 16:00] VITALS: BP 125/68
[2022-09-19 20:00] VITALS: BP 149/77
[2022-09-19] MEDS ORDERED: TRAZODONE HCL 50 MG TAB PO SCH (21:00)
[2022-09-19] MEDS ORDERED: AMITRIPTYLINE HCL 25 MG TAB PO SCH (21:00)
[2022-09-19] MEDS ORDERED: ZIPRASIDONE 20 MG CAP PO SCH (21:00)
[2022-09-19] MEDS ORDERED: GABAPENTIN 300 MG CAP PO SCH (21:00)
== END 2022-09-19 21:50 | disposition short-term general hospital, planned readmission (82) | DRG 389 ==
LOC: ER 14:32 → ERHOLD 19:50 → MED/SURG3 09-18 16:02
PROVIDERS: ADMIT Internal Medicine; ATTEND Internal Medicine
DX: K56.51 Intestinal adhesions [bands], with partial obstruction (principal); E27.1 Primary adrenocortical insufficiency; N39.0 Urinary tract infection, site not specified; E03.9 Hypothyroidism, unspecified; F41.9 Anxiety disorder, unspecified; F32.A Depression, unspecified; C50.911 Malignant neoplasm of unspecified site of right female breast; K76.0 Fatty (change of) liver, not elsewhere classified; N20.0 Calculus of kidney; G89.4 Chronic pain syndrome; E66.01 Morbid (severe) obesity due to excess calories; Z98.84 Bariatric surgery status; Z88.0 Allergy status to penicillin; Z90.49 Acquired absence of other specified parts of digestive tract; Z79.01 Long term (current) use of anticoagulants; Z20.822 Contact with and (suspected) exposure to COVID-19
CPT/HCPCS: 0223U; 36415; 36569; 71045; 71260; 74019; 74176; 80048; 80053; 81001; 83690; 83735; 84100; 85025; 85610; 85730; 87086; 87186; 93005; 99284; J0696; J2270; J2405; J7030; Q9967

== ENCOUNTER 2024-01-28 13:15 | Emergency (ER) | payer MEDICARE ==
[~2024-01-28] VITALS: Ht 170.2 cm; Wt 69.4 kg
[2024-01-28 13:35] VITALS: PULSE 102; RESP 18; TEMP 99.6; O2SAT 98
[2024-01-28] MEDS: Morphine 4mg INJECTION 4 MG/ML INJ IV ONE (15:11)
[2024-01-28] MEDS: ONDANSETRON HCL INJ 2MG/ML 2ML 2 MG/ML VIAL IV PRN (15:11)
[2024-01-28] MEDS: KETOROLAC TROMETHAMINE 30 MG/ML VIAL IV STA (15:11)
[2024-01-28] MEDS: Morphine 4mg INJECTION 4 MG/ML INJ IM ONE (15:21)
[2024-01-28] MEDS ORDERED: ONDANSETRON HCL 4 MG ORAL DISINTEGRATING TAB PO PRN (15:30)
[2024-01-28] MEDS ORDERED: KETOROLAC TROMETHAMINE 60 MG/2 ML VIAL IM ONE (15:30)
== END 2024-01-28 16:40 | disposition home or self-care (01) ==
LOC: FSED 13:30
DX: S50.01XA Contusion of right elbow, initial encounter (principal); W18.39XA Other fall on same level, initial encounter; Y93.01 Activity, walking, marching and hiking; Y92.89 Other specified places as the place of occurrence of the external cause; E03.9 Hypothyroidism, unspecified; F41.9 Anxiety disorder, unspecified; F32.A Depression, unspecified; Z85.3 Personal history of malignant neoplasm of breast; Z98.84 Bariatric surgery status
CPT/HCPCS: 73060; 73080; 99284; J2270; J1885; J2405

== ENCOUNTER 2024-06-29 15:09 | Emergency (ER) | payer MEDICARE ==
[2024-06-29 15:15] VITALS: TEMP 98.1
[2024-06-29] MEDS ORDERED: NEURONTIN100 MG PO (15:35)
[2024-06-29] MEDS ORDERED: SEROQUEL100 MG PO (15:35)
[2024-06-29] MEDS ORDERED: PROMETHAZINE HC25 M1 PO (15:35)
[2024-06-29] MEDS ORDERED: FENTANYL1 EAC1 (15:35)
[2024-06-29] MEDS ORDERED: PROPRANOLOL HCL10 MG PO (15:35)
[2024-06-29] MEDS ORDERED: DICYCLOMINE HCL20 MG PO (15:35)
[2024-06-29] MEDS ORDERED: DEPAKOTE250 MG PO (15:35)
[2024-06-29] MEDS ORDERED: MS CONTIN15 MG PO (15:35)
[2024-06-29] MEDS ORDERED: OLANZAPINE5 MG PO (15:35)
[2024-06-29] MEDS ORDERED: IOPAMIDOL 370 MG/ML 100 ML INFUS..BTL INJ ONE (16:41)
[2024-06-29] MEDS: FENTANYL CITRATE/PF 100MCG/2 ML INJ IV ONE ×2 (16:54→18:16)
[2024-06-29] MEDS: SODIUM CHLORIDE 0.9% 1000ML 1,000 ML IV SCH (16:55)
[2024-06-29 18:16] VITALS: PULSE 81; RESP 16; O2SAT 100
[2024-06-29 20:17] VITALS: BP 135/75; PULSE 81; RESP 16; TEMP 98.1
== END 2024-06-29 20:17 | disposition home or self-care (01) ==
LOC: FSED 15:14
DX: R50.9 Fever, unspecified (principal); R10.84 Generalized abdominal pain; F11.93 Opioid use, unspecified with withdrawal; E03.9 Hypothyroidism, unspecified; G40.909 Epilepsy, unspecified, not intractable, without status epilepticus; Z63.4 Disappearance and death of family member; F32.A Depression, unspecified; F41.9 Anxiety disorder, unspecified; Z85.3 Personal history of malignant neoplasm of breast
CPT/HCPCS: 74177; 80048; 80076; 81003; 82553; 82948; 83880; 84484; 85025; 87400; 99283; J3010; J7030; Q9967